=== PATIENT | male | born 1965 | race Caucasian/White ===

== ENCOUNTER → 2022-08-17 07:24 | Outpatient (BNVA) | payer OTHER, SELFPAY | PROVIDERS: PCP Internal Medicine; Visit Provider Student in an Organized Health Care Education/Training Program | DX: L95.8 Other vasculitis limited to the skin (principal) ==

== ENCOUNTER 2022-08-17 08:27 | Outpatient (REF) | payer OTHER, SELFPAY ==
[2022-08-17 10:26] LABS: MANUAL DIFF FLAG NO
[2022-08-17 10:35] LABS: Basophils Percent Auto 0.5 % (0-2); Eosinophils Absolute Auto 0.1 X10*3/uL (0.0-0.4); Eosinophils Percent Auto 1.5 % (0-4); Hematocrit 46.9 % (42.0-52.0); Hemoglobin 15.8 g/dl (14.0-18.0); Imm Gran Abs Auto 0.03 X10*3/uL (0.00-0.03); Imm Gran Pct Auto 0.5 % (0.0-0.4); Lymphocytes Absolute Auto 1.4 X10*3/uL (1.2-4.9); Lymphocytes Percent Auto 24.1 % (20-40); Mean Corpuscular HGB Conc 33.7 g/dl (31.0-36.0); Mean Corpuscular Hemoglobin 31.7 pg (27.0-33.0); Mean Platelet Volume 9.2 fL (9.4-12.4); Monocytes Absolute Auto 0.7 X10*3/uL (0.1-1.2); Monocytes Percent Auto 12.4 % (2-11); Neutrophils Absolute Auto 3.5 x10*3/uL (2.0-8.3); Platelet Count 252 X10*3/uL (160-400); Red Blood Count 4.99 X10*6/uL (4.60-5.80); Red Cell Distribution Width 12.7 % (11.0-16.0); White Blood Count 5.8 X10*3/uL (4.8-10.8)
[2022-08-17 11:19] LABS: Erythrocyte Sedimentation Rate 2 MM/HR (0-15)
[2022-08-17 13:59] LABS: Appearance Urine Clear; Color Urine Yellow; Glucose Urine UA Negative (Negative); Leukocyte Esterase Urine Negative (Negative); Nitrite Urine Negative (Negative); Specific Gravity - Urine 1.015 (1.005-1.025); Urine Blood Negative (Negative); Urine Ketones Negative (Negative); Urine Protein Negative (Neg-Trace)
[2022-08-17 14:02] LABS: Bacteria Urine None Seen (None Seen); Hyaline Casts Urine 0-2 /LPF (0-2); RBC Urine 0-2 /HPF (0-2); Squamous Epithelial Cell Urine 0-2 /HPF (0-2); WBC Urine 0-5 /HPF (0-5)
[2022-08-17 14:04] LABS: Alanine Aminotransferase 50 U/L (0-40); Albumin Level 4.4 g/dL (3.5-5.0); Alkaline Phosphatase 63 U/L (39-117); Anion Gap 12 (12-20); Aspartate Amino Transferase 26 U/L (5-37); Bilirubin Total 0.6 mg/dL (0.0-1.0); Blood Urea Nitrogen 22 mg/dL (9-16); C Reactive Protein 0.18 mg/dL (< or = 0.50); Calcium 9.6 mg/dL (8.4-10.2); Carbon Dioxide 27 mmol/L (22-29); Chloride 104 mmol/L (96-108); Estimated Glomerular Filt Rate > 60; Glucose Random 84 mg/dL (60-115); Potassium 4.2 mmol/L (3.3-5.1); Rheumatoid Factor < 13.0 IU/mL (<15.0); Sodium 139 mmol/L (135-145); Total Protein 7.1 g/dL (6.5-8.0)
[2022-08-17 15:06] LABS: Creatinine Urine 70.64 mg/dL; Total Protein Urine Random < 7 mg/dL (<12)
[2022-08-18 05:45] LABS: HBS Num1 0.82 mIU/mL (0-7.99); HBc Num1 0.08 S/CO (0.00-0.79); Hepatitis A Antibody IgM 0.22 Index (0-0.79); Hepatitis B Core Antibody Nonreactive (Nonreactive); ~HepC Num1 0.12 S/CO (0.00-0.79); ~Hepatitis A Antibody IgM Nonreactive (Nonreactive); ~Hepatitis B Surface Antibody NONREACTIVE (Nonreactive); ~Hepatitis C Antibody Nonreactive (Nonreactive)
[2022-08-18 06:13] LABS: HBsAGNum1 0.31 S/CO (0.00-0.99); Hepatitis B Surface Antigen Negative (Negative)
[2022-08-19 13:14] LABS: Prot Elec - Albumin 4.2 g/dL (3.8-4.8); Prot Elec - Alpha1 0.3 g/dL (0.2-0.3); Prot Elec - Alpha2 0.8 g/dL (0.5-0.9); Prot Elec - Beta 1 0.3 g/dL (0.4-0.6); Prot Elec - Beta 2 0.1 g/dL (0.2-0.5); Prot Elec - Total Protein 6.7 g/dL (6.1-8.1)
[2022-08-19 16:14] LABS: Anti Nuclear Antibody Screen NEGATIVE (NEGATIVE)
[2022-08-19 16:23] LABS: Cyclic Citrullinated Peptide <16 UNITS
[2022-08-19 22:58] LABS: Complement C3 74 mg/dL (82-185)
[2022-08-19 23:58] LABS: TS Negative Control Passed; TS Panel A 0; TS Panel B 0; TS Positive Control Passed; TSpotTB Negative (Negative)
[2022-08-21 04:44] LABS: Antibody to SS-A Antigen <1.0 NEG AI (<1.0 NEG); Antibody to SS-B Antigen <1.0 NEG AI (<1.0 NEG); Myeloperoxidase Antibody <1.0 AI; Proteinase 3 PR3 Antibodies <1.0 AI; SM/Ribonucleoprotein Ab <1.0 NEG AI (<1.0 NEG); Smith Protein <1.0 NEG AI (<1.0 NEG)
[2022-08-24 16:24] LABS: IgA <5 mg/dL (47-310); IgG 1141 mg/dL (600-1640); IgM 121 mg/dL (50-300)
[2022-08-25 15:09] LABS: DNAds, Crithidia Antibody Negative (Negative)
[2022-08-25 15:33] LABS: HLA B27 Negative (Negative)
[2022-08-25 17:03] LABS: C1Q Complement Component <3.6 mg/dL (5.0-8.6)
== END 2022-08-17 08:28 | disposition home or self-care (01) ==
LOC: HO.10HDL 08:27
PROVIDERS: Visit Provider Student in an Organized Health Care Education/Training Program
DX: L95.8 Other vasculitis limited to the skin (principal); D80.2 Selective deficiency of immunoglobulin A [IgA]; L40.50 Arthropathic psoriasis, unspecified; Z11.59 Encounter for screening for other viral diseases; Z11.7 Encounter for testing for latent tuberculosis infection
CPT/HCPCS: 80053; 81001; 82784; 84156; 84165; 85025; 85652; 86021; 86038; 86039; 86140; 86160; 86200; 86235; 86255; 86334; 86431; 86481; 86704; 86706; 86709; 86803; 86812; 87340

== ENCOUNTER → 2023-01-18 09:20 | Outpatient (BNVA) | payer OTHER, SELFPAY | PROVIDERS: PCP Internal Medicine; Visit Provider Student in an Organized Health Care Education/Training Program ==

== ENCOUNTER 2023-07-26 08:50 | Outpatient (REF) | payer OTHER, SELFPAY ==
--- NOTE | ~2023-07-26 | XR_ITS ---
EXAMINATION: XR FOOT, RIGHT CLINICAL INFORMATION: Pain without injury. COMPARISON: None available. TECHNIQUE: AP, lateral, and oblique views of the right foot. FINDINGS: The bones and soft tissues are unremarkable. There is minimal if any bunion formation of the first metatarsal head. Alignment is anatomic. Joint spaces are maintained. XR/XR foot LT min 3V IMPRESSION: Normal right foot. There is minimal bunion formation. EXAMINATION: XR FOOT, LEFT CLINICAL INFORMATION: Pain without injury; bunion of left foot. COMPARISON: None available. TECHNIQUE: AP, lateral, and oblique views of the left foot. FINDINGS: Bony alignment and mineralization are normal. No fracture, dislocation or left ankle joint effusion is seen. Boehler's angle is normal. There is no calcaneal spur. There is moderate osteoarthritic change of the first metatarsophalangeal joint. There is negligible bunion formation. No focal soft tissue swelling, gas or foreign body is seen. IMPRESSION: There is moderate osteoarthritic change of the left first metatarsophalangeal joint. Negligible bunion formation is noted.
--- NOTE | ~2023-07-26 | XR_ITS ---
EXAMINATION: XR FOOT, RIGHT CLINICAL INFORMATION: Pain without injury. COMPARISON: None available. TECHNIQUE: AP, lateral, and oblique views of the right foot. FINDINGS: The bones and soft tissues are unremarkable. There is minimal if any bunion formation of the first metatarsal head. Alignment is anatomic. Joint spaces are maintained. XR/XR foot RT min 3V IMPRESSION: Normal right foot. There is minimal bunion formation. EXAMINATION: XR FOOT, LEFT CLINICAL INFORMATION: Pain without injury; bunion of left foot. COMPARISON: None available. TECHNIQUE: AP, lateral, and oblique views of the left foot. FINDINGS: Bony alignment and mineralization are normal. No fracture, dislocation or left ankle joint effusion is seen. Boehler's angle is normal. There is no calcaneal spur. There is moderate osteoarthritic change of the first metatarsophalangeal joint. There is negligible bunion formation. No focal soft tissue swelling, gas or foreign body is seen. IMPRESSION: There is moderate osteoarthritic change of the left first metatarsophalangeal joint. Negligible bunion formation is noted.
== END 2023-07-26 08:51 | disposition home or self-care (01) ==
LOC: HO.XRAY 08:50
PROVIDERS: PCP Internal Medicine; Visit Provider Student in an Organized Health Care Education/Training Program
DX: M21.612 Bunion of left foot (principal); L95.8 Other vasculitis limited to the skin; M79.671 Pain in right foot
CPT/HCPCS: 73630

== ENCOUNTER 2023-07-26 08:50 | Outpatient (AMB) | payer OTHER, SELFPAY ==
--- NOTE | 2023-07-26 08:53 | A.OFFVIS_ITS ---
Intake Vital Signs 3 07/26/23 08:56 Height 5 ft 11 in Weight 154 lb 5.177 oz BMI 21.5 BP 128/82 Blood Pressure Location Rt brachial Position Sitting Pulse 87 Pulse Source Pulse Oximeter Pulse Oximetry (%) 97 Oxygen Delivery Method Room Air Intake Visit Reasons: Urticarial vasculitis Intake Note: Pt last seen 01/18/23, presents today for 6mo follow up. Still using triamcinolone and would like a refill. C/o pain in elbows and knees, progressively worse since last visit. Medical Review Coordinator Required: No Accompanied by: Self / Same As Patient Allergies Penicillins [PENICILLINS] Allergy (Unknown, Unverified 07/26/23 09:03) HIVES Medication List - Last Reconciled 07/26/23 by Jose Otero MD albuterol sulfate 90 mcg/actuation inhalation azelastine intranasal diphenhydramine HCl (Benadryl) 25 mg PO BEDTIME PRN epinephrine IM ibuprofen 200 mg PO Q6H PRN lorazepam 1 mg PO DAILY PRN prednisone Take 3 tabs by mouth once daily with breakfast for 2 weeks then 2 tabs daily for 2 weeks then remain on 1 tab daily pseudoephedrine HCl (Sudafed) 30 mg PO Q4-6H PRN sertraline 25 mg PO DAILY tamsulosin 0.4 mg PO DAILY PRN triamcinolone acetonide 0.1% 1 appl topical BID HPI HPI Comments 2 History of Present Illness0 Details 58-year-old male with urticarial vascul itis returns for follow-up. States that he continues to have itchy rashes on his back, right side, both forearms and both legs. The rashes are quite itchy. States that he applies triamcinolone cream on the most bothersome rashes which helped. He would like a refill. Uses Benadryl about once a week. States that he has been having pain in his right elbow. States that he is noticing enlargement of his left big toe associated with pain and stiffness especially with walking, denies any fevers or weight loss. Initial history: This is a 57-year-old male with a past medical history of IgA deficiency, urticarial vasculitis, hives, obstructive sleep apnea, AFib, psoriasis who presents for evaluation urticarial vasculitis. Patient states that he was diagnosed with urticarial vasculitis for many years now. Stated that he has itchy skin rashes on his trunk hands and extremities. Stated that does lesions never go way but he would have flare-ups of worsening skin rashes and worsening pruritus. A few weeks ago he had flare-up affecting the back of both knees. He was started on a prednisone taper by his PCP with significant improvement. He also mentions a significant allergic reaction to penicillin a few years back and he was on antihistamines for some time. Mentions he was diagnosed with psoriasis many years ago usually affected his scalp and was treated with shampoos. This has not been a problem recently. Patient states he has bilateral knee and shoulder pain worse with activity but does are chronic and unrelated to his rashes. He denies any fevers, chills, weight changes. Denies any blood or froth in urine. [facility] Medical History Dyslipidemia Psoriasis Restless leg Granuloma annulare Afib GERD (gastroesophageal reflux disease) DEYSI (obstructive sleep apnea) IgA deficiency BPH (benign prostatic hyperplasia) Surgical History History of tonsillectomy Hx of inguinal hernia repair History of radiofrequency ablation (RFA) procedure for cardiac arrhythmia Family History Father Dementia Alzheimer disease Maternal Grandfather Colon cancer Household Members: Family Housing: House Alcohol intake: current Alcohol intake frequency: 0-2 drinks per day Alcohol type: beer Patient Tobacco Use Status: Former Tobacco user Years Smoked: Quit 6 years ago e-Cigarette/Vaping Use: Never Used service: No Current occupational status: unemployed 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 Review of Systems Const Denies fever(s) and Denies weight loss Musc Reports deformity, Reports arthralgias and Reports stiffness Skin/Breast Reports pruritus, Reports lesions and Reports rash Physical Exam Vital Signs: Last Vital Signs Pulse 87 07/26/23 08:56 BP 128/82 07/26/23 08:56 Pulse Ox 97 07/26/23 08:56 Oxygen Delivery Method Room Air 07/26/23 08:56 BMI result Body Mass Index 21.5 Const General: cooperative, healthy appearing, comfortable and no acute distress Nutritional Appearance: average body habitus Orientation/consciousness: patient oriented x3 Limitations: no limitations HEENT Head: Yes normocephalic and Yes atraumatic Resp Effort & Inspection: normal respiratory effort and able to speak in complete sentences Skin Other: Rashes on right side of back and right flank Rashes on the flexor aspect of both forearms Rashes on legs Neuro General: patient oriented x3 Extrem Other: No active synovitis Positive resisted wrist extension test on the right, tenderness upon palpation of the common extensor origin on the right Enlargement of left 1st MTP as well as tenderness to palpation without erythema or warmth Results Reviewed Results Reviewed: SKIN, BACK-SHAVE BIOPSY: ?-NODULAR HISTIOCYTIC DERMATITIS, CONSISTENT WITH GRANULOMA ANNULARE ?-PAS AND GMS STAINS NEGATIVE FOR FUNGI ?( ?CONTROLS APPROPRIATE ?) ? RENAE BHATIA M.D., PATHOLOGIST (CASE ELECTRONICALLY SIGNED 10 20 2015) SKIN, BACK-PUNCH BIOPSY: ?-PERIVASCULAR AND INTERSTITIAL MIXED LYMPHOCYTIC/EOSINOPHILIC DERMATITIS AND EDEMA CONSISTENT WITH URTICARIAL VASCULITIS ?-PAS AND GMS STAINS NEGATIVE FOR FUNGI ?( ?CONTROLS APPROPRIATE ?) ? RENAE BHATIA M.D., PATHOLOGIST (CASE ELECTRONICALLY SIGNED 12 19 2017) Assessment & Plan Assessment & Plan (1) Urticarial vasculitis: Comment: low IgA, +C1q Ab, low C1q + skin biopsy Code(s): L95.8 - Other vasculitis limited to the skin Plan: This is a 58-year-old male with a past medical history of IgA deficiency, urticarial vasculitis who presents for follow-up. Continues to have diffuse rashes on forearms, back and legs. Will try a 6 week prednisone taper. If there is no improvement, will consider a DMARD such as azathioprine or dapsone. Will check TPMT and G6PD before next visit Topical triamcinolone refilled. Can use Benadryl nightly as needed for pruritus Labs before next visit in 6 weeks Plan I spent 26 minutes reviewing patient's chart, evaluating patient, ordering diagnostic workup, counseling patient and documenting in the chart Orders: Orders 2 Complete Blood Count Auto Diff 6 Weeks L95.8 - Other vasculitis limited to the skin C Reactive Protein 6 Weeks L95.8 - Other vasculitis limited to the skin Thiopurine Methyltransferase 6 Weeks Z51.81 - Encounter for therapeutic drug level monitoring, Z79.624 - long term care social worker (current) use of inhibitors of nucleotide synthesis XR foot RT min 3V Today M21.612 - Bunion of left foot XR foot LT min 3V Today M21.612 - Bunion of left foot Comprehensive Met. Panel 6 Weeks .8 - Other vasculitis limited to the skin Erythrocyte Sedimentation Rate 6 Weeks .8 - Other vasculitis limited to the skin [id number] Dehydrogen 6 Weeks Z79.899 - Other termite control technician (current) drug therapy Referrals 2 Podiatry Referral M21.612 - Bunion of left foot Medications: New 2 diphenhydramine HCl (Benadryl) 25 mg PO BEDTIME PRN 30 caps 2RF itching prednisone Take 3 tabs by mouth once daily with breakfast for 2 weeks then 2 tabs daily for 2 weeks then remain on 1 tab daily 84 tabs 1RF Refilled 2 triamcinolone acetonide 0.1% 1 appl topical BID 30 grams 2RF Coding Level of Care Code Est Pt Level 4 (20842) Diagnoses Urticarial vasculitis
[2023-07-26 08:56] VITALS: BP 128/82; PULSE 87; O2SAT 97; BMI 21.5
== END 2023-07-26 09:24 | disposition home or self-care (01) ==
PROVIDERS: PCP Internal Medicine; Visit Provider Student in an Organized Health Care Education/Training Program
DX: L95.8 Other vasculitis limited to the skin (principal)
CPT/HCPCS: 99214

== ENCOUNTER 2023-09-06 09:01 | Outpatient (AMB) | payer OTHER, SELFPAY ==
--- NOTE | 2023-09-06 09:05 | A.OFFVIS_ITS ---
Intake Vital Signs 3 09/06/23 09:09 Height 5 ft 11 in Weight 156 lb 11.979 oz BMI 21.9 BP 126/74 Blood Pressure Location Rt brachial Position Sitting Pulse 53 Pulse Source Pulse Oximeter Pulse Oximetry (%) 98 Oxygen Delivery Method Room Air Intake Visit Reasons: urticarial vasculitis Intake Note: Pt last seen 07/26/23 presents today for follow up and test results. States he did not do labs. Reports he never took prednisone because he is afraid it would interact with other meds. Teachers Assistant Required: No Accompanied by: Self / Same As Patient Allergies Penicillins [PENICILLINS] Allergy (Unknown, Unverified 09/06/23 09:10) HIVES Medication List - Last Reconciled 09/06/23 by Jose Otero MD albuterol sulfate 90 mcg/actuation inhalation azelastine intranasal CPAP (CPAP Machine/Device) As directed diphenhydramine HCl (Benadryl) 25 mg PO BEDTIME PRN epinephrine IM ibuprofen 200 mg PO Q6H PRN lorazepam 1 mg PO DAILY PRN prednisone Take 3 tabs by mouth once daily with breakfast for 2 weeks then 2 tabs daily for 2 weeks then remain on 1 tab daily pseudoephedrine HCl (Sudafed) 30 mg PO Q4-6H PRN sertraline 25 mg PO DAILY tamsulosin 0.4 mg PO DAILY PRN triamcinolone acetonide 0.1% 1 appl topical BID HPI HPI Comments 2 History of Present Illness0 Details 58-year-old male with urticarial vascul itis returns for follow-up. Last visit a prednisone taper was prescribed for an urticarial vasculitis flare, patient did not start as he was worried about side effects and interaction with other meds. He states that the rashes on his forearms and trunk are improving, but the rashes on his legs are getting worse, quite scratchy. He has been using the triamcinolone cream, puts Neosporin on open lesions. Initial history: This is a 57-year-old male with a past medical history of IgA deficiency, urticarial vasculitis, hives, obstructive sleep apnea, AFib, psoriasis who presents for evaluation urticarial vasculitis. Patient states that he was diagnosed with urticarial vasculitis for many years now. Stated that he has itchy skin rashes on his trunk hands and extremities. Stated that does lesions never go way but he would have flare-ups of worsening skin rashes and worsening pruritus. A few weeks ago he had flare-up affecting the back of both knees. He was started on a prednisone taper by his PCP with significant improvement. He also mentions a significant allergic reaction to penicillin a few years back and he was on antihistamines for some time. Mentions he was diagnosed with psoriasis many years ago usually affected his scalp and was treated with shampoos. This has not been a problem recently. Patient states he has bilateral knee and shoulder pain worse with activity but does are chronic and unrelated to his rashes. He denies any fevers, chills, weight changes. Denies any blood or froth in urine. [facility] Medical History Dyslipidemia Psoriasis Restless leg Granuloma annulare Afib GERD (gastroesophageal reflux disease) DEYSI (obstructive sleep apnea) IgA deficiency BPH (benign prostatic hyperplasia) Surgical History History of tonsillectomy Hx of inguinal hernia repair History of radiofrequency ablation (RFA) procedure for cardiac arrhythmia Family History Father Dementia Alzheimer disease Maternal Grandfather Colon cancer Social History Household Members: Family Housing: House Alcohol intake: current Alcohol intake frequency: 0-2 drinks per day Alcohol type: beer Patient Tobacco Use Status: Former Tobacco user Years Smoked: Quit 6 years ago e-Cigarette/Vaping Use: Never Used service: No Current occupational status: unemployed 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 Review of Systems Const Denies fever(s) and Denies weight loss Musc Reports stiffness Skin/Breast Reports pruritus, Reports lesions and Reports rash Physical Exam Vital Signs: Last Vital Signs Pulse 53 09/06/23 09:09 BP 126/74 09/06/23 09:09 Pulse Ox 98 09/06/23 09:09 Oxygen Delivery Method Room Air 09/06/23 09:09 BMI result Body Mass Index 21.9 Const General: cooperative, healthy appearing, comfortable and no acute distress Nutritional Appearance: average body habitus Orientation/consciousness: patient oriented x3 Limitations: no limitations HEENT Head: Yes normocephalic and Yes atraumatic Resp Effort & Inspection: normal respiratory effort and able to speak in complete sentences Skin Other: Rashes on forearms and trunk are less active, more hyperpigmented than last visit Rashes on legs remain quite active. Neuro General: patient oriented x3 Extrem Other: No active synovitis Results Reviewed Results Reviewed: SKIN, BACK-SHAVE BIOPSY: ?-NODULAR HISTIOCYTIC DERMATITIS, CONSISTENT WITH GRANULOMA ANNULARE ?-PAS AND GMS STAINS NEGATIVE FOR FUNGI ?( ?CONTROLS APPROPRIATE ?) ? RENAE BHATIA M.D., PATHOLOGIST (CASE ELECTRONICALLY SIGNED 10 20 2015) SKIN, BACK-PUNCH BIOPSY: ?-PERIVASCULAR AND INTERSTITIAL MIXED LYMPHOCYTIC/EOSINOPHILIC DERMATITIS AND EDEMA CONSISTENT WITH URTICARIAL VASCULITIS ?-PAS AND GMS STAINS NEGATIVE FOR FUNGI ?( ?CONTROLS APPROPRIATE ?) ? RENAE BHATIA M.D., PATHOLOGIST (CASE ELECTRONICALLY SIGNED 12 19 2017) Assessment & Plan Assessment & Plan (1) Urticarial vasculitis: Comment: low IgA, +C1q Ab, low C1q + skin biopsy Code(s): L95.8 - Other vasculitis limited to the skin Plan: This is a 58-year-old male with a past medical history of IgA deficiency, urticarial vasculitis who presents for follow-up. Continues to have diffuse rashes on forearms, back and legs. Last visit prednisone taper was prescribed, patient did not start it for fear of side effects. We discussed the risks and benefits of steroids. Advised patient to call the clinic if he develops any side effects such as mood changes. He is taking lorazepam 1 mg nightly If there is no improvement, will consider a DMARD such as azathioprine or dapsone. Will Need to check TPMT and G6PD Continue with topical triamcinolone cream Can use Benadryl nightly as needed for pruritus Follow-up in 6 weeks Plan I spent 16 minutes reviewing patient's chart, evaluating patient, counseling patient and documenting in the chart Coding Level of Care Code Est Pt Level 3 (44717) Diagnoses Urticarial vasculitis L95.8
[2023-09-06 09:09] VITALS: BP 126/74; PULSE 53; O2SAT 98; BMI 21.9
== END 2023-09-06 09:34 | disposition home or self-care (01) ==
PROVIDERS: PCP Internal Medicine; Visit Provider Student in an Organized Health Care Education/Training Program
DX: L95.8 Other vasculitis limited to the skin (principal)
CPT/HCPCS: 99213

== ENCOUNTER → 2023-09-06 09:01 | Outpatient (BNVA) | payer OTHER, SELFPAY | PROVIDERS: PCP Internal Medicine; Visit Provider Student in an Organized Health Care Education/Training Program ==

== ENCOUNTER 2023-11-01 09:09 | Outpatient (REF) | payer OTHER, SELFPAY ==
[2023-11-01 11:19] LABS: MANUAL DIFF FLAG NO
[2023-11-01 11:22] LABS: Basophils Percent Auto 0.6 % (0-2); Eosinophils Percent Auto 0.4 % (0-4); Hemoglobin 15.2 g/dl (14.0-18.0); Imm Gran Abs Auto 0.02 X10*3/uL (0.00-0.03); Imm Gran Pct Auto 0.4 % (0.0-0.4); Lymphocytes Absolute Auto 1.1 X10*3/uL (1.2-4.9); Lymphocytes Percent Auto 22.1 % (20-40); Mean Corpuscular HGB Conc 34.5 g/dl (31.0-36.0); Mean Corpuscular Hemoglobin 31.6 pg (27.0-33.0); Mean Corpuscular Volume 91.5 fL (80.0-98.0); Mean Platelet Volume 9.4 fL (9.4-12.4); Monocytes Absolute Auto 0.6 X10*3/uL (0.1-1.2); Monocytes Percent Auto 11.8 % (2-11); Neutrophils Absolute Auto 3.3 x10*3/uL (2.0-8.3); Neutrophils Percent Auto 64.7 % (45-73); Platelet Count 256 X10*3/uL (160-400); Red Blood Count 4.81 X10*6/uL (4.60-5.80); Red Cell Distribution Width 12.8 % (11.0-16.0); White Blood Count 5.2 X10*3/uL (4.8-10.8)
[2023-11-01 12:02] LABS: Erythrocyte Sedimentation Rate 2 MM/HR (0-15)
[2023-11-01 12:21] LABS: Alanine Aminotransferase 68 U/L (0-40); Albumin Level 4.2 g/dL (3.5-5.0); Alkaline Phosphatase 73 U/L (39-117); Anion Gap 9 (12-20); Aspartate Amino Transferase 41 U/L (5-37); Bilirubin Total 0.4 mg/dL (0.0-1.0); Blood Urea Nitrogen 19 mg/dL (9-16); C Reactive Protein 0.38 mg/dL (< or = 0.50); Calcium 10.2 mg/dL (8.4-10.2); Carbon Dioxide 25 mmol/L (22-29); Chloride 106 mmol/L (96-108); Estimated Glomerular Filt Rate > 60; Glucose Random 96 mg/dL (60-115); Sodium 136 mmol/L (135-145); Total Protein 7.3 g/dL (6.5-8.0)
[2023-11-06 22:38] LABS: Glucose-6-Phosphate Dehydrogen 14.8 U/g Hgb (7.0-20.5)
[2023-11-23 03:19] LABS: TPMT Activity 15
== END 2023-11-01 09:10 | disposition home or self-care (01) ==
LOC: HO.10HDL 09:09
PROVIDERS: Visit Provider Student in an Organized Health Care Education/Training Program
DX: L95.8 Other vasculitis limited to the skin (principal); Z79.624 Long term (current) use of inhibitors of nucleotide synthesis; Z79.899 Other long term (current) drug therapy
CPT/HCPCS: 36415; 80053; 82955; 84433; 85025; 85652; 86140

== ENCOUNTER 2023-11-03 08:37 | Outpatient (AMB) | payer OTHER, SELFPAY ==
[2023-11-03 08:39] VITALS: BP 134/80; PULSE 99; O2SAT 96; BMI 21.7
--- NOTE | 2023-11-03 08:39 | A.OFFVIS_ITS ---
Intake Vital Signs 11/03/23 08:39 Height 5 ft 11 in Weight 155 lb 13.869 oz BMI 21.7 BP 134/80 Blood Pressure Location Rt brachial Position Sitting Pulse 99 Pulse Source Pulse Oximeter Pulse Oximetry (%) 96 Oxygen Delivery Method Room Air Intake Visit Reasons: urticarial vasculitis Intake Note: Patient last seen 09/06/23 presents today for follow up and test results. Not on prednisone, states he feels as if he doesnt need it. Not helping with itch. Reports joint locking bl hands and severe cramping Display Screen Fabricator Required: No Accompanied by: Self / Same As Patient Allergies Penicillins [PENICILLINS] Allergy (Unknown, Unverified 11/03/23 08:41) HIVES Medication List - Last Reconciled 11/03/23 by Jose Otero MD albuterol sulfate 90 mcg/actuation inhalation azelastine intranasal CPAP (CPAP Machine/Device) As directed diphenhydramine HCl (Benadryl) 25 mg PO BEDTIME PRN epinephrine IM ibuprofen 200 mg PO Q6H PRN lorazepam 1 mg PO DAILY PRN prednisone Take 3 tabs by mouth once daily with breakfast for 2 weeks then 2 tabs daily for 2 weeks then remain on 1 tab daily pseudoephedrine HCl (Sudafed) 30 mg PO Q4-6H PRN sertraline 25 mg PO DAILY tamsulosin 0.4 mg PO DAILY PRN triamcinolone acetonide 0.1% 1 appl topical BID HPI HPI Comments History of Present Illness Details 58-year-old male with urticarial vascul itis returns for follow-up. Last visit a prednisone taper was prescribed for an urticarial vasculitis flare, he took prednisone for only 1 week. He did not feel that it helped much and was worried about long-term side effects. He states that the itchy lesions have been a little better, he has been using Benadryl cream. Recently has been noticing that his hands get stiff while working. Minimally painful. No swelling. Right a little more than left. States that he drinks a 6 pack on the weekend Initial history: This is a 57-year-old male with a past medical history of IgA deficiency, urticarial vasculitis, hives, obstructive sleep apnea, AFib, p soriasis who presents for evaluation urticarial vasculitis. Patient states that he was diagnosed with urticarial vasculitis for many years now. Stated that he has itchy skin rashes on his trunk hands and extremities. Stated that does lesions never go way but he would have flare-ups of worsening skin rashes and worsening pruritus. A few weeks ago he had flare-up affecting the back of both knees. He was started on a prednisone taper by his PCP with significant improvement. He also mentions a significant allergic reaction to penicillin a few years back and he was on antihistamines for some time. Mentions he was diagnosed with psoriasis many years ago usually affected his scalp and was treated with shampoos. This has not been a problem recently. Patient states he has bilateral knee and shoulder pain worse with activity but does are chronic and unrelated to his rashes. He denies any fevers, chills, weight changes. Denies any blood or froth in urine. [facility] Medical History Dyslipidemia Psoriasis Restless leg Granuloma annulare Afib GERD (gastroesophageal reflux disease) DEYSI (obstructive sleep apnea) IgA deficiency BPH (benign prostatic hyperplasia) Surgical History History of tonsillectomy Hx of inguinal hernia repair History of radiofrequency ablation (RFA) procedure for cardiac arrhythmia Family History Father Dementia Alzheimer disease Maternal Grandfather Colon cancer Social History Household Members: Family Housing: House Alcohol intake: current Alcohol intake frequency: 0-2 drinks per day Alcohol type: beer Patient Tobacco Use Status: Former Tobacco user Years Smoked: Quit 6 years ago e-Cigarette/Vaping Use: Never Used service: No Current occupational status: unemployed 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 Review of Systems Const Denies fever(s) and Denies weight loss Musc Reports stiffness Skin/Breast Reports pruritus and Reports rash Physical Exam Vital Signs: Last Vital Signs Pulse 99 11/03/23 08:39 BP 134/80 11/03/23 08:39 Pulse Ox 96 11/03/23 08:39 Oxygen Delivery Method Room Air 11/03/23 08:39 BMI result Body Mass Index 21.7 Const General: cooperative, healthy appearing, comfortable and no acute distress Nutritional Appearance: average body habitus Orientation/consciousness: patient oriented x3 Limitations: no limitations HEENT Head: Yes normocephalic and Yes atraumatic Resp Effort & Inspection: normal respiratory effort and able to speak in complete sentences Skin Other: No active rashes on the back Minimal excoriations on right elbow Very subtle excoriation on posterior aspect of right knee Rashes on legs significantly improved Neuro General: patient oriented x3 Extrem Other: No active synovitis Osteoarthritic changes of both hands Subtle triggering of his flexor tendons bilaterally minimally painful Tenderness at the common extensor origin at the lateral epicondyle both elbows Positive resisted wrist extension test on the right Results Reviewed Results Reviewed: SKIN, BACK-SHAVE BIOPSY: ?-NODULAR HISTIOCYTIC DERMATITIS, CONSISTENT WITH GRANULOMA ANNULARE ?-PAS AND GMS STAINS NEGATIVE FOR FUNGI ?( ?CONTROLS APPROPRIATE ?) ? RENAE BHATIA M.D., PATHOLOGIST (CASE ELECTRONICALLY SIGNED 10 20 2015) SKIN, BACK-PUNCH BIOPSY: ?-PERIVASCULAR AND INTERSTITIAL MIXED LYMPHOCYTIC/EOSINOPHILIC DERMATITIS AND EDEMA CONSISTENT WITH URTICARIAL VASCULITIS ?-PAS AND GMS STAINS NEGATIVE FOR FUNGI ?( ?CONTROLS APPROPRIATE ?) ? RENAE BHATIA M.D., PATHOLOGIST (CASE ELECTRONICALLY SIGNED 12 19 2017) Assessment & Plan Assessment & Plan (1) Urticarial vasculitis: Comment: low IgA, +C1q Ab, low C1q, mildly low C3 + skin biopsy Code(s): L95.8 - Other vasculitis limited to the skin Plan: This is a 58-year-old male with a past medical history of IgA deficiency, urti carial vasculitis who presents for follow-up. Rashes have improved. Last visit prednisone taper was prescribed, patient discontinued it after 1 week, did not feel was helpful. Upon evaluation today his rashes have significantly improved. Continue with topical triamcinolone cream Can use Benadryl nightly as needed for pruritus Follow-up in 6 months (2) Osteoarthritis of hands, bilateral: Code(s): M19.041 - Primary osteoarthritis, right hand; M19.042 - Primary osteoarthritis, left hand Qualifiers: Osteoarthritis type: primary Qualified Code(s): M19.041 - Primary osteoarthritis, right hand; M19.042 - Primary osteoarthritis, left hand Plan: No signs of inflammatory arthritis. Patient reassured Also has signs of mild flexor tendonitis of both hands as well as bilateral tennis elbow. Discussed with patient. Symptoms are mild, no need for any specific intervention at this point (3) Transaminitis: Code(s): R74.01 - Elevation of levels of liver transaminase levels Plan: Drinks a six-pack beer on the weekends. Advised patient to cut down. Follow-up with PCP Plan I spent 30 minutes reviewing patient's chart, evaluating patient, counseling patient and documenting in the chart Coding Level of Care Code Est Pt Level 4 (23334) Diagnoses Urticarial vasculitis L95.8 Primary osteoarthritis of both hands M19.041; M19.042 Osteoarthritis type: primary Transaminitis R74.01
== END 2023-11-03 09:05 | disposition home or self-care (01) ==
PROVIDERS: PCP Internal Medicine; Visit Provider Student in an Organized Health Care Education/Training Program
DX: L95.8 Other vasculitis limited to the skin (principal); M19.041 Primary osteoarthritis, right hand; M19.042 Primary osteoarthritis, left hand; R74.01 Elevation of levels of liver transaminase levels
CPT/HCPCS: 99214

== ENCOUNTER → 2023-11-03 08:37 | Outpatient (BNVA) | payer OTHER, SELFPAY | PROVIDERS: PCP Internal Medicine; Visit Provider Student in an Organized Health Care Education/Training Program ==

== ENCOUNTER 2024-03-23 15:18 | Outpatient (AMB) | payer OTHER, SELFPAY ==
[2024-03-23 15:22] VITALS: BP 118/76; PULSE 83; O2SAT 98; BMI 21.4
--- NOTE | 2024-03-23 15:22 | A.OFFVIS_ITS ---
Vital Signs 3 03/23/24 15:22 Height 5 ft 11 in Weight 153 lb 4 oz BMI 21.4 BP 118/76 Blood Pressure Location Rt brachial Position Sitting Pulse 83 Pulse Source Pulse Oximeter Pulse Oximetry (%) 98 Oxygen Delivery Method Room Air Intake Visit Reasons: COPD Allergies Penicillins [PENICILLINS] Allergy (Unknown, Unverified 03/23/24 15:25) HIVES doxycycline Allergy (Verified 03/25/24 11:19) Hives oseltamivir [From Tamiflu] Allergy (Verified 03/25/24 11:19) Hives HPI HPI COPD: Details: Yinka is a pleasant 59 year old male, former smoker with 30 pack year history, quit 9 years ago, with underlying DEYSI on CPAP ([facility]), allergic rhinitis, atrial fibrillation s/p ablation (6 years ago), IgA deficiency, GERD and anxiety. He was referred by machine adjuster helper, Dr. Kan, for pulmonary evaluation after PFT revealed of mild COPD. He reports more noticeable dyspnea on moderate exertion over the last year using albuterol PRN with good effect. Over the last few months patient has been using albuterol on a daily basis for worsening dyspnea, intermittent dry cough and wheezing. He was given a sample of Trelegy from machine adjuster helper but has not trialed yet. Recent PFT, no report available, prior PFT 2021. He was previously a part of a lung screening program but has been lost to follow up. He believes last LDCT was 2 years ago through [facility]. He reports diagnosis of childhood asthma, never requiring intubation. He reports numerous environmental and drug allergies. He denies any pertinent family history. 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 He has been diagnosed in the past with urticarial vasculitis, per referral has seen rheumatology previously trialed Xolair, however patient discontinued and symptoms have been controlled with topicals. Denies any hemoptysis. FOR[facility]LY [facility] Medical History Dyslipidemia Psoriasis Restless leg Granuloma annulare Afib GERD (gastroesophageal reflux disease) DEYSI (obstructive sleep apnea) IgA deficiency BPH (benign prostatic hyperplasia) Surgical History History of tonsillectomy Hx of inguinal hernia repair History of radiofrequency ablation (RFA) procedure for cardiac arrhythmia Family History Father Dementia Alzheimer disease Maternal Grandfather Colon cancer Social History Household Members: Family Housing: House Alcohol intake: current Alcohol intake frequency: 0-2 drinks per day Alcohol type: beer Patient Tobacco Use Status: Former Tobacco user Years Smoked: Quit 6 years ago e-Cigarette/Vaping Use: Never Used service: No Current occupational status: unemployed 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 Review of Systems Const Denies chills, Denies excessive sweating, Denies fever(s), Denies headache(s) and Denies night sweats Eyes Denies dry eyes, Denies irritation and Denies itchy eyes ENT Reports Normal hearing present, Denies headache(s), Denies nasal congestion, Denies nasal discharge, Denies post nasal drip and Denies sore throat Card Denies chest pain, Denies chest pain at rest, Denies chest pain with activity, Denies claudication, Denies leg edema, Denies orthopnea and Denies paroxysmal nocturnal dyspnea Resp Denies chest congestion, Denies excessive phlegm production, Denies pain on inspiration, Denies pain with cough and Denies stridor Musc Denies myalgias Neuro Reports Normal hearing present and Denies headache(s) Endo Denies excessive sweating Amando/Lymph Denies lymphadenopathy Aller/Immun Denies itchy eyes and Denies seasonal rhinorrhea Physical Exam Vital Signs: Last Vital Signs Pulse 83 03/23/24 15:22 BP 118/76 03/23/24 15:22 Pulse Ox 98 03/23/24 15:22 Oxygen Delivery Method Room Air 03/23/24 15:22 BMI result Body Mass Index 21.4 Const General: cooperative, healthy appearing, comfortable, no acute distress, well developed and alert Orientation/consciousness: patient oriented x3 Limitations: no limitations HEENT Head: Yes normal to inspection, Yes normocephalic and Yes atraumatic Ears: hearing grossly normal bilaterally and external ears normal Eyes General: appearance normal, both eyes and all related structures Eyelids: Yes eyelids normal Sclerae: sclerae normal EOM: EOMs intact bilaterally Neck Neck: Yes normal visual inspection and Yes no lymphadenopathy Lymphatic: no lymphadenopathy noted Chest Chest palpation & inspection: normal inspection of the chest Resp Effort & Inspection: normal respiratory effort, able to speak in complete sentences, no audible wheezes, no cough, no stridor, not tachypneic, no tripod positioning and no use of accessory muscles Auscultation: clear to auscultation bilaterally Cardio Jugular venous distension: no JVD Rate: regular rate Rhythm: regular rhythm Skin Other: warm, dry General skin exam: no rashes or lesions noted Neuro General: patient oriented x3 Cranial nerves: Yes Normal hearing present Cognition (Neuro): normal cognition Gait exam (Neuro): Normal gait present Extrem General: Yes normal to inspection, Yes capillary refill normal, Yes no clubbing, cyanosis or edema and Yes no pedal edema Psych Appearance: grossly normal and well kempt Speech and movement: Normal speech and movement present and Clear speech present Affect: normal affect Attitude: cooperative Thought process: Normal thought process present Thought content: Normal thought content present Insight: Good insight present (Psych) Judgement: Good judgement present (Psych) Results Reviewed Results Reviewed: PFT 2021 Assessment & Plan Assessment & Plan (1) COPD (chronic obstructive pulmonary disease): Code(s): J44.9 - Chronic obstructive pulmonary disease, unspecified Category: Medical (2) Personal history of tobacco use: Code(s): Z87.891 - Personal history of nicotine dependence Category: Social Hx Plan Yinka presents for pulmonary evaluation after recent diagnosis of mild COPD. He was given a sample of Trelegy 100 mcg from machine adjuster helper but has yet to use. Encouraged patient to trial, as he has been more symptomatic, using albuterol on a daily basis. Will obtain recent PFT report as well as prior chest CT. Patient has been lost to follow up on LDCT, will send for chest CT given patient with significant smoking history and quit 9 years ago. All questions were answered and patient is in agreement of plan. Will follow up to review chest CT results and response to Trelegy or sooner if needed. Orders: Orders 2 CT chest wo IV con Today Z87.891 - Personal history of nicotine dependence Coding Level of Care Code New Pt Level 4 (03694) Diagnoses COPD (chronic obstructive pulmonary disease) J44.9 Personal history of tobacco use Z87.891
== END 2024-03-23 16:21 | disposition home or self-care (01) ==
PROVIDERS: PCP Internal Medicine; Referring Provider Allergy & Immunology; Visit Provider Nurse Practitioner Family
DX: J44.9 Chronic obstructive pulmonary disease, unspecified (principal); Z87.891 Personal history of nicotine dependence
CPT/HCPCS: 99204

== ENCOUNTER → 2024-03-23 15:18 | Outpatient (BNVA) | payer OTHER, SELFPAY | PROVIDERS: PCP Internal Medicine; Referring Provider Allergy & Immunology; Visit Provider Nurse Practitioner Family ==

== ENCOUNTER → 2024-04-06 11:26 | Outpatient (BNVA) | payer OTHER, SELFPAY | PROVIDERS: PCP Internal Medicine; Visit Provider Registered Nurse | DX: S50.02XA Contusion of left elbow, initial encounter (principal); W22.09XA Striking against other stationary object, initial encounter | CPT/HCPCS: 73080; 99203 ==

== ENCOUNTER 2024-04-23 07:00 | Outpatient (REF) | payer OTHER, SELFPAY ==
--- NOTE | ~2024-04-23 | CT_ITS ---
EXAMINATION: CT CHEST WITHOUT CONTRAST CLINICAL INFORMATION: Nicotine dependence. COMPARISON: None available. TECHNIQUE: Multidetector volumetric CT imaging of the chest was done. Axial MIP volume rendering provided. Sagittal and coronal reformatted images were obtained. This CT examination was performed using dose optimization techniques as appropriate, variously including the following: *Automated exposure control *Adjustment of mA and/or kV according to patient size (this includes techniques or standardized protocols for targeted exams where dose is matched to indication/reason for exam; i.e. 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 LUNGS: There is biapical pleural and parenchymal scarring. There are centrilobular and paraseptal emphysematous changes, with a bilateral upper lobe predominance. There are biapical densities, possibly calcifications and/or surgical material. Laterally within the right upper lobe (7:111), a coarse benign, calcified granuloma is seen. Within the lateral basal segment of the right lower lobe (7:368), a 2 mm noncalcified nodule is seen. There are further benign, calcified granulomas at the right base. At the posterior left apex (7:51), a 3 mm noncalcified nodule is seen. Abutting the upper left major fissure (7:135), a 3 mm benign, pleural-based lymph node is seen. Within the anterior segment of the right upper lobe (7:275), a 2 mm noncalcified nodule is seen. Within the superior segment of the left lower lobe (7:218), a 2 mm noncalcified nodule is seen. Within the lateral basal segment of the left lower lobe (7:370 and 450), there are 3 mm and 5 mm noncalcified nodules. No mass, infiltrate or groundglass opacity is seen. There are bibasilar scattered foci of minor scar/subsegmental atelectasis, without associated focal airway obstruction. There is no generalized small airway thickening. The central airways appear patent. MEDIASTINUM: The thyroid is unremarkable. No sizable mediastinal or hilar lymphadenopathy is seen. There is no thoracic aortic aneurysm. CORONARY ARTERY CALCIFICATION: Mild. PLEURA: There is no pleural effusion. No pleural mass or thickening. AXILLA: No lymphadenopathy. UPPER ABDOMEN: There are multiple low-attenuation bilateral renal probable cysts, some too small for full characterization with CT. The included portions of the adrenal glands are unremarkable. OSSEOUS STRUCTURES: There is multi-level thoracolumbar spondylosis. No acute or aggressive osseous finding is noted. CT/CT chest wo IV con IMPRESSION: 1. There are bilateral pulmonary nodules, as detailed. The largest noncalcified nodule is situated at the lateral left base, measuring 5 mm. According to the UPDATED 2017 Fleischner Society recommendations, the advised follow-up imaging for solid nodules < 6 mm is: LOW RISK PATIENT: No routine follow-up. HIGH RISK PATIENT: Optional CT at 12 months. 2. There are centrilobular and paraseptal emphysematous changes, with a bilateral upper lobe predominance. 3. No mass, infiltrate or groundglass opacity is seen. 4. There are bibasilar scattered foci of mild scar/subsegmental atelectasis, without associated focal airway obstruction. 5. No thoracic lymphadenopathy or pleural effusion is seen. 6. There is multi-level thoracolumbar spondylosis. No aggressive osseous lesion is seen. Fleischner guidelines were followed. Electronically signed by: Xavier Beckwith MD 05/23/2024 09:27 AM EDT
== END 2024-04-23 07:01 | disposition home or self-care (01) ==
LOC: HO.CT 07:00
PROVIDERS: PCP Internal Medicine; Visit Provider Nurse Practitioner Family
DX: Z87.891 Personal history of nicotine dependence (principal)
CPT/HCPCS: 71250

== ENCOUNTER 2024-04-27 08:57 | Outpatient (AMB) | payer OTHER, SELFPAY ==
[2024-04-27 09:17] VITALS: BP 136/84; PULSE 76; RESP 13; O2SAT 99; BMI 20.5
--- NOTE | 2024-04-27 09:17 | A.OFFPC_ITS ---
Vital Signs 04/27/24 09:17 Height 5 ft 11 in Weight 147 lb BMI 20.5 BP 136/84 Blood Pressure Location Lt brachial Position Sitting Respiration 13 Pulse 76 Pulse Source Pulse Oximeter Pulse Oximetry (%) 99 Oxygen Delivery Method Room Air Intake Visit Reasons: Establish Care not a transfer Intake Note: Patient is here to re-establish care with Dr. Bal and share he has no concerns at this time. Patient reports he has anxiety meds and he would like to continue with them. 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 Accompanied by: Self / Same As Patient Allergies Penicillins [PENICILLINS] Allergy (Unknown, Verified 04/27/24 09:23) HIVES doxycycline Allergy (Verified 04/27/24 09:23) Hives oseltamivir [From Tamiflu] Allergy (Verified 04/27/24 09:23) Hives Tobacco use date assessed: 04/27/24 Dental Screening Dental Screen Date: 04/27/24 Did you have a dental visit in the last 12 months?: No Did you have a dental problem in the last 6 months where you did not have access to dental care?: No Was dental information given to patient?: Patient has dentist HPI HPI Comments History of Present Illness Details 59-year-old male with a past medical his tory of atrial fibrillation s/p ablation, hyperlipidemia, urticarial vasculitis, IgA deficiency, psoriasis, DEYSI, GERD, presenting for follow up Urticaria vasculitis-IgA, C1q antibody, allergies. Follows with allergy and immunology, Dr Kan, rheumatology Dr Otero. He has intermittent joint pain, rash. CV: s/p ablation 2014. Prior to that on flecainide and eliquis. Denies chest pain, dizziness, vision changes Pulmonary: Allergies, COPD on PFT, DEYSI on cpap. Seeing pulmonary. MSK: Polyarthralgia. Left neck, shoulder and elbow pain. Diffuse aches pain Anxiety: On sertraline 25mg daily. Takes lorazepam at night BPH On tamsulosin. Follows with urology. Seen 04/2021. Preventive: Colonoscopy 07/02/2021-recommend repeat in 5 years for sessile polyp ROS CONSTITUTIONAL: Denies weight loss, fever and chills. HEENT: Denies changes in vision and hearing. RESPIRATORY: Denies SOB and cough. CV: Denies palpitations and CP GI: Denies abdominal pain, nausea, vomiting and diarrhea. : Denies dysuria and urinary frequency. MSK: Denies new myalgia and joint pain. SKIN: Denies rash and pruritus. NEUROLOGICAL: Denies headache PSYCHIATRIC: Denies recent changes in mood. PHYSICAL EXAM: GENERAL: Alert and oriented x 3. NAD EYES: EOMI. Anicteric. HENT: Moist mucous membranes. No scleral icterus. No cervical lymphadenopathy. LUNGS: Clear to auscultation bilaterally. CARDIOVASCULAR: Regular rate and rhythm. No murmur. No JVD. ABDOMEN: Soft, non-tender +bs EXTREMITIES: No edema. Non-tender. SKIN: No rashes or lesions. Warm. NEUROLOGIC: No focal neurological deficits. CN II-XII grossly intact PSYCHIATRIC: Cooperative. Appropriate mood and affect [facility] Medical History (Updated 05/01/24 @ 14:03 by Adali Bal MD) IgA deficiency Anxiety Arthritis Dyslipidemia Psoriasis Restless leg Granuloma annulare Afib GERD (gastroesophageal reflux disease) DEYSI (obstructive sleep apnea) BPH (benign prostatic hyperplasia) Surgical History History of tonsillectomy Hx of inguinal hernia repair History of radiofrequency ablation (RFA) procedure for cardiac arrhythmia Family History Father Dementia Alzheimer disease Maternal Grandfather Colon cancer Social History Household Members: Family and Children Household Members Other:: Grandchildren Both parents involved: No Caregiver staying overnight: No Housing: House Are you a primary animal care taker to a significant other at home: No Do you presently have visiting nurse or other home services: No 75 years or older and lives alone: No Alcohol intake: current Alcohol intake frequency: 0-2 drinks per day Alcohol type: beer Patient Tobacco Use Status: Former Tobacco user Years Smoked: Quit 7 years ago e-Cigarette/Vaping Use: Never Used service: No Current occupational status: employed 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 Current occupational exposures/hazards: No Cognitive needs: No Hearing needs: No Vision needs: Yes (experiencing changes, needs referral to ophthalmology) Questionnaire PHQ-9 Over the last 2 weeks, how often have you been bothered by any of the following problems? 1. Little interest or pleasure in doing things: several days 2. Feeling down, depressed, or hopeless: several days 3. Trouble falling or staying asleep, or sleeping too much: more than half the days 4. Feeling tired or having little energy: not at all 5. Poor appetite or overeating: not at all 6. Feeling bad about yourself - or that you are a failure or have let yourself or your family down: not at all 7. Trouble concentrating on things, such as reading the newspaper or watching television: not at all 8. Moving or speaking so slowly that other people could have noticed. Or the opposite - being so fidgety or restless that you have been moving around a lot more than usual: not at all 9. Thoughts that you would be better off or of hurting yourself in some way: not at all Total score: 4 Depression Screening Interpretation: Negative (neg) Depression Screening Done: Yes 26597 - PHQ-9 Billing: Yes Source: Developed by Drs. Bill Howe, Nallely Hercules, Noman Calles and colleagues, with an educational kelly from [employer]. Thrive Questionnaire Date Thrive assessed: 04/27/24 I am a: Patient What is your living situation today?: I have a steady place to live Within the past 12 months, did the food you bought not last and you didn't have the money to get more?: Never true Within the past 12 months, did you worry whether your food would run out before you got money to buy more?: Never true Do you have trouble paying for medicines?: No Do you have trouble getting transportation to medical appointments?: No Do you have trouble paying your heating and electricity bill?: No Do you have trouble taking care of your child, family member or friend?: No Do you have trouble with day-to-day activities such as bathing, preparing meals, shopping, managing finances, etc.?: No Are you interested in more education?: No Please select the resources that you would like help with: None Currently or been in a relationship where the following occur: No concerns reported THRIVE Score: 0 AUDIT C Alcohol Use Questionnaire (AUDIT-C) 1. How often do you have a drink containing alcohol?: 4 or more times a week 2. How many drinks containing alcohol do you have on a typical day when you are drinking?: 1 or 2 3. How often do you have six or more drinks on one occasion?: Never Total Score: 4 RINA-7 AMB Questionnaire RINA-7 Date RINA - 7 assessed: 04/27/24 Feeling nervous, anxious, or on edge: 2 = More than half the days Not being able to stop or control worryin = Several days Worrying too much about different things: 1 = Several days Trouble relaxin = More than half the days Being so restless that it is hard to sit still: 3 = Nearly every day Becoming easily annoyed or irritable: 1 = Several days Feeling afraid as if something awful might happen: 0 = Not at all Total RINA-7 score (0-4 normal; 5-9 mild; 10-14 moderate; 15-21 severe): 10 Source: Developed by Drs. Bill Howe, Nallely Hercules, Noman Calles and colleagues, with an educational kelly from [employer]. RINA-7 Assessment Billing RINA-7 Assessment Tool: RINA-7 Assessment 76805 Physical exam (Primary Care) Vital Signs: Last Vital Signs Pulse 76 04/27/24 09:17 Resp 13 04/27/24 09:17 BP 136/84 04/27/24 09:17 Pulse Ox 99 04/27/24 09:17 Oxygen Delivery Method Room Air 04/27/24 09:17 BMI result Body Mass Index 20.5 Tobacco/Smoking Status: Tobacco use Status Tobacco use date assessed 04/27/24 04/27/24 09:30 Patient Tobacco Use Status Former Tobacco user 04/27/24 09:30 e-Cigarette/Vaping Use Never Used 04/27/24 09:30 PHQ-9: PHQ-9 Score PHQ-9: Total score 4 05/01/24 14:04 Depression Screening Interpretation: Negative (neg) Thrive Assessment: Date of Thrive Assessment Date Thrive assessed 04/27/24 04/27/24 09:33 Currently or been in a relationship where the following occur: No concerns reported Assessment and Plan Assessment & Plan (1) Urticarial vasculitis: Code(s): L95.8 - Other vasculitis limited to the skin Plan: continue follow up with A&I, rheumatology, dermatology prn (2) Afib: Code(s): I48.91 - Unspecified atrial fibrillation Qualifiers: Atrial fibrillation type: unspecified Qualified Code(s): I48.91 - Unspecified atrial fibrillation Plan: s/p ablation. Remains in sinus rhythm (3) COPD (chronic obstructive pulmonary disease): Code(s): J44.9 - Chronic obstructive pulmonary disease, unspecified Qualifiers: COPD type: chronic bronchitis Chronic bronchitis type: simple Qualified Code(s): J41.0 - Simple chronic bronchitis Plan: Follow up with pulmonary. no exacerbation (4) Dyslipidemia: Code(s): E78.5 - Hyperlipidemia, unspecified Plan: monitor labs. low saturated fat diet. (5) IgA deficiency: Code(s): D80.2 - Selective deficiency of immunoglobulin A [IgA] Plan: f/up immunology Orders: Orders Lipid Panel 04/27/24 Z12.5 - Encounter for screening for malignant neoplasm of prostate, Z13.220 - Encounter for screening for lipoid disorders Prostate Specific Antigen 04/27/24 Z12.5 - Encounter for screening for malignant neoplasm of prostate, Z13.220 - Encounter for screening for lipoid disorders Medications: New Trelegy Ellipta 200-62.5-25 mcg (hupswongavq-[id number]) 1 inh inhalation DAILY 1 ea 0RF 90 days NS lorazepam 1 mg PO DAILY PRN 30 tabs 0RF anxiety Changed From sertraline 25 mg PO DAILY To sertraline 25 mg PO DAILY 90 tabs 3RF 90 days Coding Level of Care Code Est Pt Level 5 (60238) Diagnoses Urticarial vasculitis L95.8 Atrial fibrillation, unspecified type I48.91 Atrial fibrillation type: unspecified Simple chronic bronchitis J41.0 COPD type: chronic bronchitis Chronic bronchitis type: simple Dyslipidemia E78.5 IgA deficiency D80.2 Additional Codes RINA-7 Assessment Billing - RINA-7 Assessment Tool: RINA-7 Assessment [id number] ([id number])
== END 2024-04-27 09:56 | disposition home or self-care (01) ==
PROVIDERS: PCP Internal Medicine; Visit Provider Internal Medicine
DX: I48.91 Unspecified atrial fibrillation (principal); J41.0 Simple chronic bronchitis; D80.2 Selective deficiency of immunoglobulin A [IgA]; L95.8 Other vasculitis limited to the skin; E78.5 Hyperlipidemia, unspecified
CPT/HCPCS: 99214

== ENCOUNTER 2024-05-07 07:21 | Outpatient (AMB) | payer OTHER, SELFPAY ==
--- NOTE | 2024-05-07 07:26 | MHC.OFFVIS ---
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 Allergies Penicillins [PENICILLINS] Allergy (Unknown, Verified 04/27/24 09:23) HIVES doxycycline Allergy (Verified 04/27/24 09:23) Hives oseltamivir [From Tamiflu] Allergy (Verified 04/27/24 09:23) Hives Medication List - Last Reconciled 05/07/24 by Jose Otero MD albuterol sulfate 90 mcg/actuation inhalation azelastine intranasal CPAP (CPAP Machine/Device) As directed epinephrine IM ibuprofen 200 mg PO Q6H PRN lorazepam 1 mg PO DAILY PRN pseudoephedrine HCl (Sudafed) 30 mg PO Q4-6H PRN sertraline 25 mg PO DAILY 90 days tamsulosin 0.4 mg PO DAILY Trelegy Ellipta 200-62.5-25 mcg (rvfzznjcbel-[id number]) 1 inh inhalation DAILY 90 days NS triamcinolone acetonide 0.1% 1 appl topical BID HPI Comments Details: 59-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 He states that he continues to have intermittent itchy rashes in different areas. He mostly uses Benadryl cream for symptomatic improvement. Sometimes uses triamcinolone cream. The rashes are overall stable. Has not had any significant flare-up. Two weeks ago he banged his left elbow, had swelling of his left elbow, he went to urgent care and elbow was wrapped, it resolved in a few days. Continues to have intermittent achy and stiff joints, joints crack. Initial history: This is a 57-year-old male with a past medical history of IgA deficiency, urticarial vasculitis, hives, obstructive sleep apnea, AFib, psoriasis who presents for evaluation urticarial vasculitis. Patient states that he was diagnosed with urticarial vasculitis for many years now. Stated that he has itchy skin rashes on his trunk hands and extremities. Stated that does lesions never go way but he would have flare-ups of worsening skin rashes and worsening pruritus. A few weeks ago he had flare-up affecting the back of both knees. He was started on a prednisone taper by his PCP with significant improvement. He also mentions a significant allergic reaction to penicillin a few years back and he was on antihistamines for some time. Mentions he was diagnosed with psoriasis many years ago usually affected his scalp and was treated with shampoos. This has not been a problem recently. Patient states he has bilateral knee and shoulder pain worse with activity but does are chronic and unrelated to his rashes. He denies any fevers, chills, weight changes. Denies any blood or froth in urine. [facility] Medical History IgA deficiency Anxiety Arthritis Dyslipidemia Psoriasis Restless leg Granuloma annulare Afib GERD (gastroesophageal reflux disease) DEYSI (obstructive sleep apnea) BPH (benign prostatic hyperplasia) Surgical History History of tonsillectomy Hx of inguinal hernia repair History of radiofrequency ablation (RFA) procedure for cardiac arrhythmia Family History Father Dementia Alzheimer disease Maternal Grandfather Colon cancer Social History Household Members: Family and Children Household Members Other:: Grandchildren Both parents involved: No Caregiver staying overnight: No Housing: House Are you a primary career technology teacher to a significant other at home: No Do you presently have visiting nurse or other home services: No 75 years or older and lives alone: No Alcohol intake: current Alcohol intake frequency: 0-2 drinks per day Alcohol type: beer Patient Tobacco Use Status: Former Tobacco user Years Smoked: Quit 7 years ago e-Cigarette/Vaping Use: Never Used service: No Current occupational status: employed 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 Current occupational exposures/hazards: No Cognitive needs: No Hearing needs: No Vision needs: Yes (experiencing changes, needs referral to ophthalmology) Review of Systems Const Denies fever(s) and Denies weight loss Musc Reports arthralgias and Reports stiffness Skin/Breast Reports pruritus and Reports rash Physical Exam Vital Signs: Last Vital Signs Pulse 83 05/07/24 07:32 BP 124/82 05/07/24 07:32 Pulse Ox 99 05/07/24 07:32 Oxygen Delivery Method Room Air 05/07/24 07:32 BMI result Body Mass Index 24.5 Const General: cooperative, healthy appearing, comfortable and no acute distress Nutritional Appearance: average body habitus Orientation/consciousness: patient oriented x3 Limitations: no limitations HEENT Head: Yes normocephalic and Yes atraumatic Resp Effort & Inspection: normal respiratory effort and able to speak in complete sentences Skin Other: No active rashes on the back Subtle excoriations on legs Neuro General: patient oriented x3 Extrem Other: No active synovitis Osteoarthritic changes of both hands Results Reviewed Results Reviewed: SKIN, BACK-SHAVE BIOPSY: ?-NODULAR HISTIOCYTIC DERMATITIS, CONSISTENT WITH GRANULOMA ANNULARE ?-PAS AND GMS STAINS NEGATIVE FOR FUNGI ?( ?CONTROLS APPROPRIATE ?) ? RENAE BHATIA M.D., PATHOLOGIST (CASE ELECTRONICALLY SIGNED 10 20 2015) SKIN, BACK-PUNCH BIOPSY: ?-PERIVASCULAR AND INTERSTITIAL MIXED LYMPHOCYTIC/EOSINOPHILIC DERMATITIS AND EDEMA CONSISTENT WITH URTICARIAL VASCULITIS ?-PAS AND GMS STAINS NEGATIVE FOR FUNGI ?( ?CONTROLS APPROPRIATE ?) ? RENAE BHATIA M.D., PATHOLOGIST (CASE ELECTRONICALLY SIGNED 12 19 2017) Assessment & Plan Assessment & Plan (1) Urticarial vasculitis: Code(s): L95.8 - Other vasculitis limited to the skin Category: Medical Plan: This is a 59-year-old male with a past medical history of IgA deficiency, urticarial vasculitis who presents for follow-up. Symptoms fairly stable, continues to have intermittent itchy rashes in different areas. Managed with Benadryl cream and triamcinolone cream. Has not had any significant rashes requiring DMARDs. Continue current management. Can use Benadryl nightly as needed for pruritus Follow-up in 6 months (2) Osteoarthritis of hands, bilateral: Code(s): M19.041 - Primary osteoarthritis, right hand; M19.042 - Primary osteoarthritis, left hand Category: Medical Qualifiers: Osteoarthritis type: primary Qualified Code(s): M19.041 - Primary osteoarthritis, right hand; M19.042 - Primary osteoarthritis, left hand Plan: No signs of inflammatory arthritis. Patient reassured Also has signs of mild flexor tendonitis of both hands as well as bilateral tennis elbow. Discussed with patient. Symptoms are mild, no need for any specific intervention at this point Plan I spent 30 minutes reviewing patient's chart, evaluating patient, counseling patient and documenting in the chart Medications: Refilled triamcinolone acetonide 0.1% 1 appl topical BID 80 grams 2RF Coding Level of Care Code Est Pt Level 4 (46024) Diagnoses Urticarial vasculitis L95.8 Primary osteoarthritis of both hands M19.041; M19.042 Osteoarthritis type: primary
[2024-05-07 07:32] VITALS: BP 124/82; PULSE 83; O2SAT 99; BMI 24.5
== END 2024-05-07 07:56 | disposition home or self-care (01) ==
PROVIDERS: PCP Internal Medicine; Visit Provider Student in an Organized Health Care Education/Training Program
DX: L95.8 Other vasculitis limited to the skin (principal); M19.041 Primary osteoarthritis, right hand; M19.042 Primary osteoarthritis, left hand
CPT/HCPCS: 99214

== ENCOUNTER → 2024-05-07 07:21 | Outpatient (BNVA) | payer OTHER, SELFPAY | PROVIDERS: PCP Internal Medicine; Visit Provider Student in an Organized Health Care Education/Training Program ==

== ENCOUNTER 2024-05-24 09:59 | Outpatient (REF) | payer OTHER, SELFPAY ==
[2024-05-24 12:32] LABS: Cholesterol 203 mg/dL (<200); HDL Cholesterol 67 mg/dL (>40); LDL Cholesterol Calculated 101 mg/dL (<100); Triglycerides 176 mg/dL (<150)
[2024-05-24 12:33] LABS: Prostate Specific Antigen 1.42 ng/mL (<0.05-4.0)
[2024-05-25 14:48] LABS: IgA <5 mg/dL (47-310); IgG 1207 mg/dL (600-1640); IgM 103 mg/dL (50-300)
[2024-05-29 16:39] LABS: Tetanus Antitoxiod Antibody 2.18 IU/mL
== END 2024-05-24 10:00 | disposition home or self-care (01) ==
LOC: HO.WFDLDS 09:59
PROVIDERS: Allergy & Immunology; Visit Provider Internal Medicine
DX: D80.2 Selective deficiency of immunoglobulin A [IgA] (principal); Z13.220 Encounter for screening for lipoid disorders; Z12.5 Encounter for screening for malignant neoplasm of prostate
CPT/HCPCS: 36415; 80061; 82784; 84153; 86317; 86648; 86774

== ENCOUNTER 2024-06-13 13:43 | Outpatient (AMB) | payer OTHER, SELFPAY ==
--- NOTE | 2024-06-13 13:01 | A.OFFVIS_ITS ---
Vital Signs 06/13/24 14:06 Height 5 ft 11 in Weight 153 lb 6 oz BMI 21.4 BP 142/88 H Blood Pressure Location Lt brachial Position Sitting Pulse 73 Pulse Source Pulse Oximeter Pulse Oximetry (%) 98 Oxygen Delivery Method Room Air Intake Visit Reasons: Chest CT results Allergies Penicillins [PENICILLINS] Allergy (Unknown, Verified 06/13/24 14:08) HIVES doxycycline Allergy (Verified 06/13/24 14:08) Hives oseltamivir [From Tamiflu] Allergy (Verified 06/13/24 14:08) Hives HPI HPI Chest CT results : Details: Yinka is a pleasant 59 year old male, former smoker with 30 pack year history, quit 9 years ago, with underlying COPD, DEYSI on CPAP ([facility]), allergic rhinitis, atrial fibrillation s/p ablation (6 years ago), IgA deficiency, GERD and anxiety. At the last visit, he started using Trelegy consistently and reports good control of respiratory symptoms. He does continue to report dyspnea on moderate exertion however his daily activities are not effected by dyspnea. He denies cough, wheezing or chest tightness. He does have albuterol MDI which he uses infrequently. He was previously a part of [facility]'s lung screening program but has been lost to follow up. Today he presents to review chest CT results. He denies any visits to urgent care or hospitalizations related to respiratory changes since the last visit. [facility] Medical History IgA deficiency Anxiety Arthritis Dyslipidemia Psoriasis Restless leg Granuloma annulare Afib GERD (gastroesophageal reflux disease) DEYSI (obstructive sleep apnea) BPH (benign prostatic hyperplasia) Surgical History History of tonsillectomy Hx of inguinal hernia repair History of radiofrequency ablation (RFA) procedure for cardiac arrhythmia Family History Father Dementia Alzheimer disease Maternal Grandfather Colon cancer Social History Household Members: Family and Children Household Members Other:: Grandchildren Both parents involved: No Caregiver staying overnight: No Housing: House Are you a primary caregiver assisted living to a significant other at home: No Do you presently have visiting nurse or other home services: No 75 years or older and lives alone: No Alcohol intake: current Alcohol intake frequency: 0-2 drinks per day Alcohol type: beer Patient Tobacco Use Status: Former Tobacco user Years Smoked: Quit 7 years ago e-Cigarette/Vaping Use: Never Used service: No Current occupational status: employed 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 Current occupational exposures/hazards: No Cognitive needs: No Hearing needs: No Vision needs: Yes (experiencing changes, needs referral to ophthalmology) Review of Systems Const Denies chills, Denies excessive sweating, Denies fever(s), Denies headache(s) and Denies night sweats Eyes Denies dry eyes, Denies irritation and Denies itchy eyes ENT Reports Normal hearing present, Denies headache(s), Denies nasal congestion, Denies nasal discharge, Denies post nasal drip and Denies sore throat Card Denies chest pain, Denies chest pain at rest, Denies chest pain with activity, Denies claudication, Denies leg edema, Denies orthopnea and Denies paroxysmal nocturnal dyspnea Resp Denies chest congestion, Denies excessive phlegm production, Denies pain on inspiration, Denies pain with cough and Denies stridor Musc Denies myalgias Neuro Reports Normal hearing present and Denies headache(s) Endo Denies excessive sweating Amando/Lymph Denies lymphadenopathy Aller/Immun Denies itchy eyes and Denies seasonal rhinorrhea Physical Exam Vital Signs: Last Vital Signs Pulse 73 06/13/24 14:06 BP 142/88 H 06/13/24 14:06 Pulse Ox 98 06/13/24 14:06 Oxygen Delivery Method Room Air 06/13/24 14:06 BMI result Body Mass Index 21.4 Const General: cooperative, healthy appearing, comfortable, no acute distress, well developed and alert Orientation/consciousness: patient oriented x3 Limitations: no limitations HEENT Head: Yes normal to inspection, Yes normocephalic and Yes atraumatic Ears: hearing grossly normal bilaterally and external ears normal Eyes General: appearance normal, both eyes and all related structures Eyelids: Yes eyelids normal Sclerae: sclerae normal EOM: EOMs intact bilaterally Neck Neck: Yes normal visual inspection and Yes no lymphadenopathy Lymphatic: no lymphadenopathy noted Chest Chest palpation & inspection: normal inspection of the chest Resp Effort & Inspection: normal respiratory effort, able to speak in complete sentences, no audible wheezes, no cough, no stridor, not tachypneic, no tripod positioning and no use of accessory muscles Auscultation: clear to auscultation bilaterally Cardio Jugular venous distension: no JVD Rate: regular rate Rhythm: regular rhythm Skin Other: warm, dry General skin exam: no rashes or lesions noted Neuro General: patient oriented x3 Cranial nerves: Yes Normal hearing present Cognition (Neuro): normal cognition Gait exam (Neuro): Normal gait present Extrem General: Yes normal to inspection, Yes capillary refill normal, Yes no clubbing, cyanosis or edema and Yes no pedal edema Psych Appearance: grossly normal and well kempt Speech and movement: Normal speech and movement present and Clear speech present Affect: normal affect Attitude: cooperative Thought process: Normal thought process present Thought content: Normal thought content present Insight: Good insight present (Psych) Judgement: Good judgement present (Psych) Results Reviewed Results Reviewed: [place] [address] CT Scan Report Signed Patient: Yinka Merino MR#: [id number] : 1965 Acct:[id number] Age/Sex: 59 / M ADM Date: 04/23/24 Loc: HO.CT Attending Dr: Mercedes Wright NP Ordering Physician: Mercedes Wright NP Date of Service: 04/23/24 Procedure(s): CT chest wo IV con Accession Number(s): [id number] cc: Adali Bal MD; Mercedes Wright NP~ EXAMINATION: CT CHEST WITHOUT CONTRAST CLINICAL INFORMATION: Nicotine dependence. COMPARISON: None available. TECHNIQUE: Multidetector volumetric CT imaging of the chest was done. Axial MIP volume rendering provided. Sagittal and coronal reformatted images were obtained. This CT examination was performed using dose optimization techniques as appropriate, variously including the following: *Automated exposure control *Adjustment of mA and/or kV according to patient size (this includes techniques or standardized protocols for targeted exams where dose is matched to indication/reason for exam; i.e. 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 LUNGS: There is biapical pleural and parenchymal scarring. There are centrilobular and paraseptal emphysematous changes, with a bilateral upper lobe predominance. There are biapical densities, possibly calcifications and/or surgical material. Laterally within the right upper lobe (7:111), a coarse benign, calcified granuloma is seen. Within the lateral basal segment of the right lower lobe (7:368), a 2 mm noncalcified nodule is seen. There are further benign, calcified granulomas at the right base. At the posterior left apex (7:51), a 3 mm noncalcified nodule is seen. Abutting the upper left major fissure (7:135), a 3 mm benign, pleural-based lymph node is seen. Within the anterior segment of the right upper lobe (7:275), a 2 mm noncalcified nodule is seen. Within the superior segment of the left lower lobe (7:218), a 2 mm noncalcified nodule is seen. Within the lateral basal segment of the left lower lobe (7:370 and 450), there are 3 mm and 5 mm noncalcified nodules. No mass, infiltrate or groundglass opacity is seen. There are bibasilar scattered foci of minor scar/subsegmental atelectasis, without associated focal airway obstruction. There is no generalized small airway thickening. The central airways appear patent. MEDIASTINUM: The thyroid is unremarkable. No sizable mediastinal or hilar lymphadenopathy is seen. There is no thoracic aortic aneurysm. CORONARY ARTERY CALCIFICATION: Mild. PLEURA: There is no pleural effusion. No pleural mass or thickening. AXILLA: No lymphadenopathy. UPPER ABDOMEN: There are multiple low-attenuation bilateral renal probable cysts, some too small for full characterization with CT. The included portions of the adrenal glands are unremarkable. OSSEOUS STRUCTURES: There is multi-level thoracolumbar spondylosis. No acute or aggressive osseous finding is noted. CT/CT chest wo IV con IMPRESSION: 1. There are bilateral pulmonary nodules, as detailed. The largest noncalcified nodule is situated at the lateral left base, measuring 5 mm. According to the UPDATED 2017 Fleischner Society recommendations, the advised follow-up imaging for solid nodules < 6 mm is: LOW RISK PATIENT: No routine follow-up. HIGH RISK PATIENT: Optional CT at 12 months. 2. There are centrilobular and paraseptal emphysematous changes, with a bilateral upper lobe predominance. 3. No mass, infiltrate or groundglass opacity is seen. 4. There are bibasilar scattered foci of mild scar/subsegmental atelectasis, without associated focal airway obstruction. 5. No thoracic lymphadenopathy or pleural effusion is seen. 6. There is multi-level thoracolumbar spondylosis. No aggressive osseous lesion is seen. Fleischner guidelines were followed. Electronically signed by: Xavier Beckwith MD 05/23/2024 09:27 AM EDT RP Dictated By: Xavier Beckwith MD Signed By: <Electronically signed by Xavier Beckwith MD in OV> 05/23/24926 DD/ 5 TD/TT: 04/23/24725 Health Insurance Adjuster: GENOVEVA Assessment & Plan Assessment & Plan (1) COPD (chronic obstructive pulmonary disease): Code(s): J44.9 - Chronic obstructive pulmonary disease, unspecified Category: Medical Qualifiers: COPD type: chronic bronchitis Chronic bronchitis type: simple Qualified Code(s): J41.0 - Simple chronic bronchitis (2) Personal history of tobacco use: Code(s): Z87.891 - Personal history of nicotine dependence Category: Social Hx (3) Multiple pulmonary nodules: Code(s): R91.8 - Other nonspecific abnormal finding of lung field Category: Medical Plan Reviewed chest CT which revealed emphysematous changes as well as multiple pulmonary nodules, <5 mm. Will repeat in one year to assess stability. Overall he reports good control of respiratory symptoms on current regimen. Advised to use albuterol PRN in addition to Trelegy if symptomatic. All questions were answered and patient is in agreement of plan. Will follow up in 3-6 months or sooner if needed. Orders: Orders CT chest wo IV con 10 Months R91.8 - Other nonspecific abnormal finding of lung field Medications: Changed From albuterol sulfate 90 mcg/actuation inhalation To albuterol sulfate 90 mcg/actuation 2 inhalations inhalation Q4-6H PRN 1 ea 3RF shortness of breath or wheezing Refilled Trelegy Ellipta 200-62.5-25 mcg (ytrhkxmsvaq-aeifosxvf-ccmftmqs) 1 inh inhalation DAILY 90 days 1 ea 0RF NS Coding Level of Care Code Est Pt Level 4 (86250) Diagnoses Simple chronic bronchitis J41.0 COPD type: chronic bronchitis Chronic bronchitis type: simple Personal history of tobacco use Z87.891 Multiple pulmonary nodules R91.8
[2024-06-13 14:06] VITALS: BP 142/88; PULSE 73; O2SAT 98; BMI 21.4
== END 2024-06-13 15:29 | disposition home or self-care (01) ==
PROVIDERS: PCP Internal Medicine; Visit Provider Nurse Practitioner Family
DX: J41.0 Simple chronic bronchitis (principal); Z87.891 Personal history of nicotine dependence; R91.8 Other nonspecific abnormal finding of lung field
CPT/HCPCS: 99214

== ENCOUNTER → 2024-06-13 13:43 | Outpatient (BNVA) | payer OTHER, SELFPAY | PROVIDERS: PCP Internal Medicine; Visit Provider Nurse Practitioner Family ==

== ENCOUNTER 2024-10-23 14:06 | Outpatient (AMB) | payer OTHER, SELFPAY ==
--- NOTE | 2024-10-23 14:17 | MHC.PC.OV ---
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 Manager Laboratory Required: No Allergies Penicillins [PENICILLINS] Allergy (Unknown, Verified 10/23/24 14:17) HIVES doxycycline Allergy (Verified 10/23/24 14:17) Hives oseltamivir [From Tamiflu] Allergy (Verified 10/23/24 14:17) Hives Tobacco use date assessed: 10/23/24 Dental Screening Dental Screen Date: 04/27/24 HPI HPI Comments History of Present Illness Details 59-year-old male with a past medical history of atrial fibrillation s/p ablation, hyperlipidemia, urticarial vasculitis, IgA deficiency, psoriasis, DEYSI, GERD, presenting for physical exam Urticaria vasculitis-IgA, C1q antibody, allergies. Follows with allergy and immunology, Dr Kan, and rheumatology at [facility] [place]. He has intermittent joint pain, rash. CV: s/p ablation 2014. Prior to that on flecainide and eliquis. Denies chest pain, dizziness, vision changes Pulmonary: Allergies, COPD on PFT, DEYSI on cpap. Seeing pulmonary. On trelegy MSK: Polyarthralgia. Left neck, shoulder and elbow pain. Diffuse aches pain Anxiety: On sertraline 25mg daily. Takes lorazepam at night BPH On tamsulosin. Follows with urology. Seen 04/2021. Preventive: Colonoscopy 07/02/2021-recommend repeat in 5 years for sessile polyp ROS CONSTITUTIONAL: Denies weight loss, fever and chills. HEENT: Denies changes in vision and hearing. RESPIRATORY: Denies SOB and cough. CV: Denies palpitations and CP GI: Denies abdominal pain, nausea, vomiting and diarrhea. : Denies dysuria and urinary frequency. MSK: Denies new myalgia and joint pain. SKIN: Denies rash and pruritus. NEUROLOGICAL: Denies headache PSYCHIATRIC: Denies recent changes in mood. PHYSICAL EXAM: GENERAL: Alert and oriented x 3. NAD EYES: EOMI. Anicteric. HENT: Moist mucous membranes. No scleral icterus. No cervical lymphadenopathy. LUNGS: Clear to auscultation bilaterally. CARDIOVASCULAR: Regular rate and rhythm. No murmur. No JVD. ABDOMEN: Soft, non-tender +bs EXTREMITIES: No edema. Non-tender. SKIN: No rashes or lesions. Warm. NEUROLOGIC: No focal neurological deficits. CN II-XII grossly intact PSYCHIATRIC: Cooperative. Appropriate mood and affect [facility] Medical History IgA deficiency Anxiety Arthritis Dyslipidemia Psoriasis Restless leg Granuloma annulare Afib GERD (gastroesophageal reflux disease) DEYSI (obstructive sleep apnea) BPH (benign prostatic hyperplasia) Surgical History History of tonsillectomy Hx of inguinal hernia repair History of radiofrequency ablation (RFA) procedure for cardiac arrhythmia Family History Father Dementia Alzheimer disease Maternal Grandfather Colon cancer Social History Household Members: Family and Children Household Members Other:: Grandchildren Housing: House Are you a primary healthcare architect to a significant other at home: No Do you presently have visiting nurse or other home services: No Alcohol intake: current Alcohol intake frequency: 0-2 drinks per day Alcohol type: beer Patient Tobacco Use Status: Former Tobacco user Years Smoked: Quit 7 years ago e-Cigarette/Vaping Use: Never Used service: No Current occupational status: employed 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 Current occupational exposures/hazards: No Cognitive needs: No Hearing needs: No Vision needs: Yes (experiencing changes, needs referral to ophthalmology) Questionnaire PHQ-9 Over the last 2 weeks, how often have you been bothered by any of the following problems? 1. Little interest or pleasure in doing things: several days 2. Feeling down, depressed, or hopeless: several days 3. Trouble falling or staying asleep, or sleeping too much: several days 4. Feeling tired or having little energy: not at all 5. Poor appetite or overeating: several days 6. Feeling bad about yourself - or that you are a failure or have let yourself or your family down: not at all 7. Trouble concentrating on things, such as reading the newspaper or watching television: several days 8. Moving or speaking so slowly that other people could have noticed. Or the opposite - being so fidgety or restless that you have been moving around a lot more than usual: several days 9. Thoughts that you would be better off or of hurting yourself in some way: not at all Total score: 6 Depression Screening Interpretation: Positive Depression Screening Follow-up: Existing condition Depression Screening Done: Yes 00792 - PHQ-9 Billing: Yes Source: Developed by Drs. Bill Howe, Nallely Hercules, Noman Calles and colleagues, with an educational kelly from [employer]. Thrive Questionnaire Date Thrive assessed: 10/23/24 I am a: Patient What is your living situation today?: I have a steady place to live Within the past 12 months, did the food you bought not last and you didn't have the money to get more?: Never true Within the past 12 months, did you worry whether your food would run out before you got money to buy more?: Never true Do you have trouble paying for medicines?: No Do you have trouble getting transportation to medical appointments?: No Do you have trouble paying your heating and electricity bill?: No Do you have trouble taking care of your child, family member or friend?: No Do you have trouble with day-to-day activities such as bathing, preparing meals, shopping, managing finances, etc.?: No Are you currently unemployed and looking for a job?: No Are you interested in more education?: No Please select the resources that you would like help with: None Currently or been in a relationship where the following occur: No concerns reported THRIVE Score: 0 AUDIT C Alcohol Use Questionnaire (AUDIT-C) 1. How often do you have a drink containing alcohol?: 4 or more times a week 2. How many drinks containing alcohol do you have on a typical day when you are drinking?: 1 or 2 3. How often do you have six or more drinks on one occasion?: Less than monthly Total Score: 5 RINA-7 AMB Questionnaire RINA-7 Date RINA - 7 assessed: 10/23/24 Feeling nervous, anxious, or on edge: 2 = More than half the days Not being able to stop or control worryin = Several days Worrying too much about different things: 1 = Several days Trouble relaxin = Not at all Being so restless that it is hard to sit still: 1 = Several days Becoming easily annoyed or irritable: 1 = Several days Feeling afraid as if something awful might happen: 0 = Not at all Total RINA-7 score (0-4 normal; 5-9 mild; 10-14 moderate; 15-21 severe): 6 Source: Developed by Drs. Bill Howe, Nallely Hercules, Noman Calles and colleagues, with an educational kelly from [employer]. RINA-7 Assessment Billing RINA-7 Assessment Tool: RINA-7 Assessment 11818 Physical exam (Primary Care) Vital Signs: Last Vital Signs Pulse 82 10/23/24 14:20 Resp 14 10/23/24 14:20 BP 130/88 10/23/24 14:20 Pulse Ox 98 10/23/24 14:20 Oxygen Delivery Method Room Air 10/23/24 14:20 BMI result Body Mass Index 20.4 Tobacco/Smoking Status: Tobacco use Status Tobacco use date assessed 10/23/24 10/23/24 14:24 Patient Tobacco Use Status Former Tobacco user 10/23/24 14:24 e-Cigarette/Vaping Use Never Used 10/23/24 14:24 PHQ-9: PHQ-9 Score PHQ-9: Total score 6 10/27/24 16:24 Depression Screening Interpretation: Positive Depression Screening Follow-up: Existing condition Thrive Assessment: Date of Thrive Assessment Date Thrive assessed 10/23/24 10/23/24 14:24 Currently or been in a relationship where the following occur: No concerns reported Coding Level of Care Code Est Pt Prev Care 40-64y(63542) Diagnoses Physical exam Z00.00 Dyslipidemia E78.5 Simple chronic bronchitis J41.0 COPD type: chronic bronchitis Chronic bronchitis type: simple IgA deficiency D80.2 Atrial fibrillation, unspecified type I48.91 Atrial fibrillation type: unspecified Additional Codes RINA-7 Assessment Billing - RINA-7 Assessment Tool: RINA-7 Assessment 26252 ([id number]) PHQ-9 - 20178 - PHQ-9 Billing: Yes ([id number]) Assessment & Plan Assessment & Plan (1) Physical exam: Code(s): Z00.00 - Encounter for general adult medical examination without abnormal findings Category: Medical Plan: 59 y/o male presenting for physical exam. Chronic medical conditions reviewed. Interval history reviewed. Medications reconciled Preventive measures for age discussed (2) Dyslipidemia: Code(s): E78.5 - Hyperlipidemia, unspecified Category: Medical Plan: continue current medications (3) COPD (chronic obstructive pulmonary disease): Code(s): J44.9 - Chronic obstructive pulmonary disease, unspecified Category: Medical Qualifiers: COPD type: chronic bronchitis Chronic bronchitis type: simple Qualified Code(s): J41.0 - Simple chronic bronchitis Plan: stable (4) IgA deficiency: Code(s): D80.2 - Selective deficiency of immunoglobulin A [IgA] Category: Medical Plan: continue follow up (5) Afib: Code(s): I48.91 - Unspecified atrial fibrillation Category: Medical Qualifiers: Atrial fibrillation type: unspecified Qualified Code(s): I48.91 - Unspecified atrial fibrillation Plan: stable Orders: Orders Complete Blood Count Auto Diff 10/23/24 D80.2 - Selective deficiency of immunoglobulin A [IgA], E78.5 - Hyperlipidemia, unspecified, I48.91 - Unspecified atrial fibrillation, J41.0 - Simple chronic bronchitis Comprehensive Met. Panel 10/23/24 D80.2 - Selective deficiency of immunoglobulin A [IgA], E78.5 - Hyperlipidemia, unspecified, I48.91 - Unspecified atrial fibrillation, J41.0 - Simple chronic bronchitis Lipid Panel 10/23/24 D80.2 - Selective deficiency of immunoglobulin A [IgA], E78.5 - Hyperlipidemia, unspecified, I48.91 - Unspecified atrial fibrillation, J41.0 - Simple chronic bronchitis TSH reflex Free T4 10/23/24 D80.2 - Selective deficiency of immunoglobulin A [IgA], E78.5 - Hyperlipidemia, unspecified, I48.91 - Unspecified atrial fibrillation, J41.0 - Simple chronic bronchitis
[2024-10-23 14:20] VITALS: BP 130/88; PULSE 82; RESP 14; O2SAT 98; BMI 20.4
--- OUTSIDE RECORDS SUMMARY | 2024-10-23 17:38 | XMS_ITS | Clinical Summary ---
Author Organization [facility] it Address [address] [place] [address] Care Team Providers Care Aitchbone Breaker Name Role Phone Unavailable Primary Care Provider Unavailabl e Surgical History Surgery Date Site/Laterality Comments TONSILLECTOMY ADENOIDECTOMY, BILATERAL MYRINGOTOMY AND TUBES PROCEDURE: [place] TONSILLECTOMY & ADENOIDECTOMY <AGE 11 HERNIA REPAIR 08/2001 PROCEDURE: LAPAROSCOPY, INGUINAL HERNIA REPAIR; COMMENT: bilateral COLONOSCOPY 06/2015 PROCEDURE: HISTORICAL COLONOSCOPY; COMMENT: polypectomies (hyperplastic polyps) , hemorrhoids Medical History Medical History Date Comments Lumbago DX:Lumbago Allergic rhinitis, cause unspecified DX:Allergic rhinitis, cause unspecified Other psoriasis 06/02/2006 DX:Other psorias is Pain in joint, lower leg 06/02/2006 DX:Pain in joint, lower leg Routine general medical exam ination at a health care facility 06/02/2006 DX:Routine general medical examination at a health care facility; COMMENT: normal EKG , chest x-ray normal normal liver dysfunction tests 12/27, normal urinalysis , cholesterol 228 , comprehensive metabolic profile normal normal CBC Pure hypercholesterolemia 06/02/2006 DX:Pur e hypercholesterolemia; COMMENT: cholesterol 228 IgA deficiency (CMS/HCC) DX:IgA deficiency (HCC) Family History Medical History Relation Name Comments Heart attack Father mid-50's Other: gastric ulcer Father Alcohol/Drug Maternal Grandfather Colon cancer Maternal Grandfather Stroke Maternal Grandmother Other: afib Sister 1 Diabetes Neg Hx Hypertension Neg Hx Relation Name Status Comments Brother Alive healthy Daughter Alive healthy Father (Age 85) [place] in 60s, gastritis - HTN; dementia Maternal Grandfather colon c ancer in 90s, alcholism Maternal Grandmother cva - b patricia embolism Mother Alive chol; mac degen eration Paternal Grandfather (Age 80s) o ld age Paternal Grandmother (Age 90s) o ld age Sister 1 Alive brain tumor pos sible meningioma - seizure Sister 2 Alive healthy - skin cancer Son Alive healthy Social History Tobacco Use Types Packs/Day Years Used Date Smoking Tobacco: Former Cigarettes Q uit: 07/18/2015 Smokeless Tobacco: Never Quit: 09/19/2014 Alcohol Use Standard Drinks/Week Comments Yes 3.3 (1 standard drink = 0.6 oz p ure alcohol) Sex and Gender Information Value Date Recorded Sex Assigned at Not on file Legal Sex Male 2:54 AM EST Gender Identity Not on file Sexual Orientation Not on file Obstetrics History Last Filed Vital Signs Vital Sign Reading Time Taken Comments Blood Pressure 138/96 09/30/2022 8:12 AM EST Sitting L Arm Pulse 86 09/30/2022 8:12 AM EST Temperature - - Respiratory Rate - - Oxygen Saturation - - Inhaled Oxygen Concentration - - Weight 75.5 kg (166 lb 6.4 oz) 09/30/2022 8:12 AM EST Height 180.3 cm (5' 11 ) 09/30/2022 8:1 2 AM EST Body Mass Index 23.21 09/30/2022 8:12 AM EST Plan of Treatment Health Maintenance Due Date Last Done Comments Pneumococcal Vaccine: 50+ Years (1 of 2 - PCV) 1983 Pneumococcal Vaccine: Pediatrics (0 to 5 Years) and At-Risk Patients (6 to 64 Years) (1 of 2 - PCV) 1983 Zoster Vaccines (1 of 2) 1983 COVID-19 Vaccine (3 - Pfizer risk series) 12/30/2020 12/02/2020, 11/10/2020 DTaP,Tdap,and Td Vaccines (4 - Td or Tdap) 03/04/2021 03/04/2011, 06/02/2006, 01/27/1971 Cholesterol Screening (Lipid Panel) 08/07/2022 Depression Screening 08/07/2022 HIV Screening 08/07/2022 Hepatitis C Screening 08/07/2022 Social Influencers of Health Screening 08/07/2022 Lung Cancer Screening (Low Dose CT) 09/21/2023 09/21/2022, 09/14/2021 RSV Immunization Patients 60 + Years Old (1 - Risk 60-74 years 1-dose series) 2024 Influenza Vaccine (#1) 2024 Colorectal Cancer Screening: Colonoscopy 07/05/2026 HIB Vaccines Aged Out No longer eligi ble based on patient's age to complete this topic HPV Vaccines Aged Out No longer eligi ble based on patient's age to complete this topic Hepatitis A Vaccines Aged Out No long er eligible based on patient's age to complete this topic Hepatitis B Vaccines Aged Out No long er eligible based on patient's age to complete this topic IPV Vaccines Aged Out No longer eligi ble based on patient's age to complete this topic MMR Vaccines Aged Out No longer eligi ble based on patient's age to complete this topic Meningococcal ACWY Vaccine Aged Out N o longer eligible based on patient's age to complete this topic Meningococcal B Vacine Aged Out No lo nger eligible based on patient's age to complete this topic RSV Immunization Patients Under 20 months Aged Out No longer eligible b ased on patient's age to complete this topic Varicella Vaccines Aged Out No longer eligible based on patient's age to complete this topic Procedures Procedure Name Priority Date/Time Associated Diagnosis Comments CT LUNG SCREENING LOW DOSE Routine 09/21/2022 10:43 AM EST Personal history of nicotine dependence from Last 3 Months or Most Recently Relevant to Health Maintenance Results * CT LUNG SCREENING LOW DOSE (09/21/2022 10:43 AM EST) Anatomical Region Laterality Modality Computed Tomogra phy 09/20/2022 4:40 PM EST Narrative 09/21/2022 10:43 AM EST [facility] Diagnostic Imaging Department [address] [place], [place] [id number] Patient: ??YINKA MERINO ?/Age/Sex: 1965 - 57 - M Unit#: ??[id number] ? Location/Status: ??SPDICATLS/REG CLI ? Mnemonic/Ordering Site: ??CTLUNGLD/SPCT Ordering Physician: ??HERLINDA MACDONALD MD CT Lung Screening Low Dose - 09/20/22 - 164 History: ??57 year-old 33 pack-year former smoker, asymptomatic, for lung cancer screening. Quit smoking 7 years ago. Comparison: 09/14/21 Technique: Helical volumetric imaging of the thorax was performed, using low- dose technique, without IV contrast. DLP: 126.07 mGy/cm ??CTDIvol: 3.22 mGy Symvato VCT Iterative reconstruction technique Findings: Lungs and Airways: The trachea and central bronchial tree remain patent. Centrilobular and paraseptal emphysema are again noted. Minimal biapical partially calcified pleural parenchymal scarring is unchanged. There is new juxtamediastinal atelectasis or scar in the posteromedial left lower lobe. A 3 mm solid, noncalcified nodule is unchanged in the left lung apex (image 29 series 4). Also unchanged is a 5 mm solid, noncalcified nodule in the lateral aspect of the left lower lobe (image 168). No suspicious developing nodule is seen. Pleura: No pleural or pericardial effusions are seen. Base of neck, mediastinum and heart: No developing thoracic lymphadenopathy is noted. The heart remains normal in size. Soft tissues: The overlying soft tissues are unremarkable. Abdomen: This study was performed without contrast and with lower than standard dose. These factors reduce the sensitivity for detection of small lesions in the upper abdomen. Scattered hepatic cysts are again noted. Impression: No suspicious developing pulmonary nodule. No significant change. Lung RADS 2: Benign Appearance or Behavior - Continue annual screening with LDCT in 12 months. 33602 G9637 G9557 G9551 Dictating Physician: ??BEBA HOUSTON MD Electronically Signed by: ??BEBA HOUSTON MD Dic Date/Time: ??09/21/22 1033 Sign date/Time: ??09/21/22 1043 Procedure Note Beba Houston MD - 09/30/2023 [facility] Diagnostic Imaging Department [address] [place] [id number] Patient: YINKA MERINO /Age/Sex: 1965 - 57 - M Unit#: [id number] Location/Status: [facility] CLI Mnemonic/Ordering Site: [facility] [place] Ordering Physician: HERLINDA MACDONALD MD CT Lung Screening Low Dose - 09/20/22 - 1649 History: 57 year-old 33 pack-year former smoker, asymptomatic, for lungcancer screening. Quit smoking 7 years ago. Comparison: 09/14/21 Technique: Helical volumetric imaging of the thorax was performed, usinglow- dose technique, without IV contrast. DLP: 126.07 mGy/cm CTDIvol: 3.22 mGy Symvato VCT Iterative reconstruction technique Findings: Lungs and Airways: The trachea and central bronchial tree remain patent. Centrilobular and paraseptal emphysema are again noted. Minimal biapical partially calcified pleural parenchymal scarring is unchanged. There isnew juxtamediastinal atelectasis or scar in the posteromedial left lowerlobe. A 3 mm solid, noncalcified nodule is unchanged in the left lung apex(image 29 series 4). Also unchanged is a 5 mm solid, noncalcified nodule in thelateral aspect of the left lower lobe (image 168). No suspicious developing nodule is seen. Pleura: No pleural or pericardial effusions are seen. Base of neck, mediastinum and heart: No developing thoraciclymphadenopathy is noted. The heart remains normal in size. Soft tissues: The overlying soft tissues are unremarkable. Abdomen: This study was performed without contrast and with lower thanstandard dose. These factors reduce the sensitivity for detection of small lesionsin the upper abdomen. Scattered hepatic cysts are again noted. Impression: No suspicious developing pulmonary nodule. No significant change. Lung RADS 2: Benign Appearance or Behavior - Continue annual screeningwith LDCT in 12 months. 11351 G9637 G9557 G9551 Dictating Physician: BEBA HOUSTON MD Electronically Signed by: BEBA HOUSTON MD Dic Date/Time: 09/21/22 1033 Sign date/Time: 09/21/22 1043 Herlinda Macdonald MD IMG CT PROCEDURES Final Result from Last 3 Months or Most Recently Relevant to Health Maintenance
== END 2024-10-23 15:07 | disposition home or self-care (01) ==
PROVIDERS: PCP Internal Medicine; Visit Provider Internal Medicine
DX: Z00.00 Encounter for general adult medical examination without abnormal findings (principal); J41.0 Simple chronic bronchitis; D80.2 Selective deficiency of immunoglobulin A [IgA]; I48.91 Unspecified atrial fibrillation; E78.5 Hyperlipidemia, unspecified

== ENCOUNTER → 2024-10-23 14:06 | Outpatient (BNVA) | payer OTHER, SELFPAY | PROVIDERS: PCP Internal Medicine; Visit Provider Internal Medicine | DX: Z00.00 Encounter for general adult medical examination without abnormal findings (principal); E78.5 Hyperlipidemia, unspecified; J41.0 Simple chronic bronchitis; D80.2 Selective deficiency of immunoglobulin A [IgA]; I48.91 Unspecified atrial fibrillation; F41.9 Anxiety disorder, unspecified; N40.0 Benign prostatic hyperplasia without lower urinary tract symptoms; Z79.899 Other long term (current) drug therapy | CPT/HCPCS: 96127 ==

== ENCOUNTER 2024-10-23 15:11 | Outpatient (REF) | payer OTHER, SELFPAY ==
[2024-10-23 18:02] LABS: MANUAL DIFF FLAG NO
[2024-10-23 18:13] LABS: Basophils Percent Auto 0.6 % (0-2); Eosinophils Absolute Auto 0.1 X10*3/uL (0.0-0.4); Eosinophils Percent Auto 1.1 % (0-4); Hematocrit 43.7 % (42.0-52.0); Hemoglobin 14.9 g/dl (14.0-18.0); Imm Gran Abs Auto 0.02 X10*3/uL (0.00-0.03); Imm Gran Pct Auto 0.3 % (0.0-0.4); Lymphocytes Absolute Auto 1.4 X10*3/uL (1.2-4.9); Lymphocytes Percent Auto 22.9 % (20-40); Mean Corpuscular HGB Conc 34.1 g/dl (31.0-36.0); Mean Corpuscular Hemoglobin 31.8 pg (27.0-33.0); Mean Corpuscular Volume 93.2 fL (80.0-98.0); Mean Platelet Volume 9.4 fL (9.4-12.4); Monocytes Absolute Auto 0.9 X10*3/uL (0.1-1.2); Monocytes Percent Auto 14.1 % (2-11); Neutrophils Absolute Auto 3.8 x10*3/uL (2.0-8.3); Platelet Count 293 X10*3/uL (160-400); Red Blood Count 4.69 X10*6/uL (4.60-5.80); Red Cell Distribution Width 12.5 % (11.0-16.0); White Blood Count 6.2 X10*3/uL (4.8-10.8)
[2024-10-23 18:33] LABS: Alanine Aminotransferase 92 U/L (0-40); Albumin Level 4.2 g/dL (3.5-5.0); Alkaline Phosphatase 76 U/L (39-117); Anion Gap 11 (12-20); Aspartate Amino Transferase 53 U/L (5-37); Bilirubin Total 0.4 mg/dL (0.0-1.0); Blood Urea Nitrogen 25 mg/dL (9-16); Calcium 9.5 mg/dL (8.4-10.2); Carbon Dioxide 27 mmol/L (22-29); Chloride 106 mmol/L (96-108); Cholesterol 195 mg/dL (<200); Estimated Glomerular Filt Rate > 60; Glucose Random 75 mg/dL (60-115); HDL Cholesterol 67 mg/dL (>40); LDL Cholesterol Calculated 105 mg/dL (<100); Potassium 3.9 mmol/L (3.3-5.1); Sodium 140 mmol/L (135-145); Total Protein 7.6 g/dL (6.5-8.0); Triglycerides 118 mg/dL (<150)
[2024-10-23 18:49] LABS: TSH reflex Free T4 1.31 uIU/mL (0.32-4.0)
--- OUTSIDE RECORDS SUMMARY | 2024-10-23 18:57 | XMS_ITS | Clinical Summary ---
Author Organization [facility] it Address [address] [place] [address] Care Team Providers Care Welcome Desk Agent Name Role Phone Unavailable Primary Care Provider Unavailabl e Surgical History Surgery Date Site/Laterality Comments TONSILLECTOMY ADENOIDECTOMY, BILATERAL MYRINGOTOMY AND TUBES PROCEDURE: [place] TONSILLECTOMY & ADENOIDECTOMY <AGE 11 HERNIA REPAIR [...] healthy Daughter Alive healthy Father (Age 85) [place] in 60s, gastritis - HTN; dementia Maternal [...] PM EST Narrative 09/21/2022 10:43 AM EST [facility] Diagnostic Imaging Department [address] [place], [place] [id number] Patient: ??YINKA MERINO ?/Age/Sex: 1965 - 57 - M Unit#: ??[id number] ? Location/Status: ??SPDICATLS/REG CLI ? Mnemonic/Ordering Site: ??CTLUNGLD/SPCT Ordering Physician: ??HERLINDA MACDONALD MD CT Lung Screening Low Dose - 09/20/22 - 164 History: ??57 year-old 33 pack-year former smoker, asymptomatic, for lung cancer screening. Quit smoking 7 years ago. Comparison: 09/14/21 Technique: Helical volumetric imaging of the thorax was performed, using low- dose technique, without IV contrast. DLP: 126.07 mGy/cm ??CTDIvol: 3.22 mGy Bow & Drape VCT Iterative reconstruction technique Findings: Lungs and [...] annual screening with LDCT in 12 months. [id number] G9637 G9557 G9551 Dictating Physician: ??BEBA HOUSTON MD Electronically Signed by: ??BEBA HOUSTON MD Dic Date/Time: ??09/21/22 1033 Sign date/Time: ??09/21/22 1043 Procedure Note Beba Houston MD - 09/30/2023 [facility] Diagnostic Imaging Department [address] [place] [id number] Patient: YINKA MERINO /Age/Sex: 1965 - 57 - M Unit#: [id number] Location/Status: [facility] CLI Mnemonic/Ordering Site: [facility] Ordering Physician: HERLINDA MACDONALD MD CT Lung Screening Low Dose - 09/20/22 - 1649 History: 57 year-old 33 pack-year former smoker, asymptomatic, for lungcancer screening. Quit smoking 7 years ago. Comparison: 09/14/21 Technique: Helical volumetric imaging of the thorax was performed, usinglow- dose technique, without IV contrast. DLP: 126.07 mGy/cm CTDIvol: 3.22 mGy Bow & Drape VCT Iterative reconstruction technique Findings: Lungs and [...] Continue annual screeningwith LDCT in 12 months. [id number] G9637 G9557 G9551 Dictating Physician: BEBA HOUSTON MD Electronically Signed by: BEBA HOUSTON MD Dic Date/Time: 09/21/22 1033 Sign date/Time: 09/21/22 1043 Herlinda Macdonald MD IMG CT PROCEDURES Final Result from Last 3 Months or Most Recently Relevant to Health Maintenance
== END 2024-10-23 15:12 | disposition home or self-care (01) ==
LOC: HO.WFDLDS 15:11
PROVIDERS: Visit Provider Internal Medicine
DX: D80.2 Selective deficiency of immunoglobulin A [IgA] (principal); I48.91 Unspecified atrial fibrillation; E78.5 Hyperlipidemia, unspecified; J41.0 Simple chronic bronchitis
CPT/HCPCS: 36415; 80053; 80061; 84443; 85025

== ENCOUNTER 2024-12-05 09:21 | Outpatient (AMB) | payer OTHER, SELFPAY ==
--- NOTE | 2024-12-05 09:47 | AM.OFFWIN_ITS ---
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: No Allergies Penicillins [PENICILLINS] Allergy (Unknown, Verified 12/05/24 10:10) HIVES doxycycline Allergy (Verified 12/05/24 10:10) Hives oseltamivir [From Tamiflu] Allergy (Verified 12/05/24 10:10) Hives Medication List - Last Reconciled 12/05/24 by CRISTÓBAL KruseP- albuterol sulfate 90 mcg/actuation 2 inhalations inhalation Q4-6H PRN azelastine intranasal CPAP (CPAP Machine/Device) As directed epinephrine IM ibuprofen 200 mg PO Q6H PRN lorazepam 1 mg PO DAILY pseudoephedrine HCl (Sudafed) 30 mg PO Q4-6H PRN sertraline 25 mg PO DAILY 90 days tamsulosin 0.4 mg PO DAILY Trelegy Ellipta 200-62.5-25 mcg (uysqhpdcynl-sizzshvcj-nxheaxpt) 1 inh inhalation DAILY 90 days NS triamcinolone acetonide 0.1% 1 appl topical BID Do you need a note to return to daycare/school/sports/work: No HPI HPI Comments History of Present Illness Details PCP Sheree History - The patient is a 59-year-old male pres enting with respiratory symptoms & vomiting - Symptoms began three weeks ago with th e onset of a cough productive of green and brown phlegm following exposure to a flooded basement at work. - He notes persistent vomiting and decre ased appetite, with decreased success in oral intake without emesis. - Accompanied by secondary symptoms of j oint aches, blurry vision, and headaches. - Chronic history of COPD, reporting a s light increase in wheezing since illness onset, increased inhaler usage noted. - Experienced environmental exposure to unpleasant odors and stagnant water. Denies fever, chills, hemoptysis, abd pain. Responds well to Zpak usually. Other notes: - Reports persistent tendon pain possibl y linked to osteoarthritis, with no resolution. Presents for months. Exam: Awake alert NAD Sclera and conjunctiva clear bilat Nares patent, turbinates within normal limits, no sinus tenderness with palpation bilat TM intact and clear bilat MMM, pharynx WNL RRR LS faint exp wheeze LLL otherwise clear and dim throughout Discussion Notes Considering his COPD history, I recommended azithromycin, which the patient has found effective in previous episodes. I reinforced the importance of follow-up with his primary care provider, Dr. Bal, if symptoms fail to improve following the course of antibiotics. I emphasized that if vomiting persists or appetite does not return, further evaluation is warranted. Recommendations include arranging a follow-up within the next couple of weeks for continued evaluation, especially concerning the persistent joint pain in RLE. Patient Instructions - Prescribed course of azithromycin as d irected. - Monitor symptoms for signs of improvem ent. - Use the inhaler as needed for wheezing . - Schedule a follow-up visit with Dr. Rafat Inman as advised Consent Patient was informed and verbally consented to the use of an ambient scribe for clinic note documentation during this visit. [facility] Medical History IgA deficiency Anxiety Arthritis Dyslipidemia Psoriasis Restless leg Granuloma annulare Afib GERD (gastroesophageal reflux disease) DEYSI (obstructive sleep apnea) BPH (benign prostatic hyperplasia) Surgical History History of tonsillectomy Hx of inguinal hernia repair History of radiofrequency ablation (RFA) procedure for cardiac arrhythmia Family History Father Dementia Alzheimer disease Maternal Grandfather Colon cancer Social History Household Members: Family and Children Household Members Other:: Grandchildren Both parents involved: No Caregiver staying overnight: No Housing: House Are you a primary health and social care teacher to a significant other at home: No Do you presently have visiting nurse or other home services: No 75 years or older and lives alone: No Alcohol intake: current Alcohol intake frequency: 0-2 drinks per day Alcohol type: beer Patient Tobacco Use Status: Former Tobacco user Years Smoked: Quit 7 years ago e-Cigarette/Vaping Use: Never Used service: No Current occupational status: employed 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 Current occupational exposures/hazards: No Cognitive needs: No Hearing needs: No Vision needs: Yes (experiencing changes, needs referral to ophthalmology) Physical Exam Vital Signs: Last Vital Signs Temp 97.8 F 12/05/24 09:50 Pulse 90 12/05/24 09:50 Resp 13 12/05/24 09:50 BP 138/78 12/05/24 09:50 Pulse Ox 97 12/05/24 09:50 Oxygen Delivery Method Simple Mask 12/05/24 09:50 BMI result Body Mass Index 20.0 Assessment & Plan Assessment & Plan (1) COPD (chronic obstructive pulmonary disease): Code(s): J44.9 - Chronic obstructive pulmonary disease, unspecified Qualifiers: COPD type: chronic bronchitis Chronic bronchitis type: simple Qualified Code(s): J41.0 - Simple chronic bronchitis (2) Nausea and vomiting: Code(s): R11.2 - Nausea with vomiting, unspecified Qualifiers: Vomiting type: unspecified Qualified Code(s): R11.2 - Nausea with vomiting, unspecified (3) Right leg pain: Code(s): M79.604 - Pain in right leg Plan . Medications: New azithromycin For 250 mg dose pack: take 500 mg today (day 1), then 250 mg for 4 days (days 2-5) PO 5 days 6 tabs 0RF Coding Level of Care Code Est Pt Level 4 (84034) Diagnoses Simple chronic bronchitis J41.0 COPD type: chronic bronchitis Chronic bronchitis type: simple Nausea and vomiting, unspecified vomiting type R11.2 Vomiting type: unspecified Right leg pain M79.604
[2024-12-05 09:50] VITALS: BP 138/78; PULSE 90; RESP 13; TEMP 36.6; O2SAT 97
--- OUTSIDE RECORDS SUMMARY | 2024-12-05 10:00 | XMS_ITS | Clinical Summary ---
Author Organization [facility] it Address [address] [place] [address] Care Team Providers Care Senior Merchandiser Name Role Phone Unavailable Primary Care Provider Unavailabl e Surgical History Surgery Date Site/Laterality Comments TONSILLECTOMY ADENOIDECTOMY, BILATERAL MYRINGOTOMY AND TUBES PROCEDURE: HI TONSILLECTOMY & ADENOIDECTOMY <AGE 11 HERNIA REPAIR [...] healthy Daughter Alive healthy Father (Age 85) [place] in 60s, gastritis - HTN; dementia Maternal [...] Dose CT) 09/21/2023 09/21/2022, 09/14/2021 RSV Immunization Adult Patients (1 - Risk 60-74 years 1-dose series) [...] age to complete this topic Meningococcal B Vaccine Aged Out No l onger eligible based on patient's age to complete [...] PM EST Narrative 09/21/2022 10:43 AM EST [facility] Diagnostic Imaging Department [address] [place] [id number] Patient: ??YINKA MERINO ?/Age/Sex: 1965 - 57 - M Unit#: ??[id number] ? Location/Status: ??SPDICATLS/REG CLI ? Mnemonic/Ordering Site: ??CTLUNGLD/SPCT Ordering Physician: ??HERLINDA MACDONALD MD CT Lung Screening Low Dose - 09/20/22 - 164 History: ??57 year-old 33 pack-year former smoker, asymptomatic, for lung cancer screening. Quit smoking 7 years ago. Comparison: 09/14/21 Technique: Helical volumetric imaging of the thorax was performed, using low- dose technique, without IV contrast. DLP: 126.07 mGy/cm ??CTDIvol: 3.22 mGy Inspire VCT Iterative reconstruction technique Findings: Lungs and [...] annual screening with LDCT in 12 months. [id number] [id number] G9557 G9551 Dictating Physician: ??BEBA HOUSTON MD Electronically Signed by: ??BEBA HOUSTON MD Dic Date/Time: ??09/21/22 1033 Sign date/Time: ??09/21/22 1043 Procedure Note Beba Houston MD - 09/30/2023 [facility] Diagnostic Imaging Department [address] [place] [id number] Patient: RICKYYINKA./Age/Sex: 1965 - 57 - M Unit#: [id number] Location/Status: [facility] CLI Mnemonic/Ordering Site: [facility] Ordering Physician: HERLINDA MACDONALD MD CT Lung Screening Low Dose - 09/20/22 - 1649 History: 57 year-old 33 pack-year former smoker, asymptomatic, for lungcancer screening. Quit smoking 7 years ago. Comparison: 09/14/21 Technique: Helical volumetric imaging of the thorax was performed, usinglow- dose technique, without IV contrast. DLP: 126.07 mGy/cm CTDIvol: 3.22 mGy Inspire VCT Iterative reconstruction technique Findings: Lungs and [...] Continue annual screeningwith LDCT in 12 months. [id number] G9637 G9557 G9551 Dictating Physician: BEBA HOUSTON MD Electronically Signed by: BEBA HOUSTON MD Dic Date/Time: 09/21/22 1033 Sign date/Time: 09/21/22 1043 Herlinda Macdonald MD IMG CT PROCEDURES Final Result from Last 3 Months or Most Recently Relevant to Health Maintenance
== END 2024-12-05 10:18 | disposition home or self-care (01) ==
LOC: HO.HMCWIW 09:21
PROVIDERS: PCP Internal Medicine; Visit Provider Nurse Practitioner Family
DX: J41.0 Simple chronic bronchitis (principal); R11.2 Nausea with vomiting, unspecified; M79.604 Pain in right leg

== ENCOUNTER → 2024-12-05 09:21 | Outpatient (BNVA) | payer OTHER, SELFPAY | PROVIDERS: PCP Internal Medicine; Visit Provider Nurse Practitioner Family | DX: Z13.89 Encounter for screening for other disorder (principal) ==

== ENCOUNTER 2024-12-25 15:16 | Outpatient (AMB) | payer OTHER, SELFPAY ==
--- NOTE | 2024-12-25 15:33 | MHC.PC.OV ---
Vital Signs 12/25/24 15:35 Height 5 ft 11 in Weight 147 lb 2 oz BMI 20.5 BP 136/82 Blood Pressure Location Rt brachial Position Sitting Respiration 14 Pulse 88 Pulse Source Pulse Oximeter Pulse Oximetry (%) 98 Oxygen Delivery Method Room Air Intake Visit Reasons: 2-3 weeks fu right leg pain, COPD, GI sx Intake Note: Follow up Allergies Penicillins [PENICILLINS] Allergy (Unknown, Verified 12/25/24 15:33) HIVES doxycycline Allergy (Verified 12/25/24 15:33) Hives oseltamivir [From Tamiflu] Allergy (Verified 12/25/24 15:33) Hives Tobacco use date assessed: 12/25/24 Dental Screening Dental Screen Date: 04/27/24 Did you have a dental visit in the last 12 months?: No Did you have a dental problem in the last 6 months where you did not have access to dental care?: No Was dental information given to patient?: Patient declined HPI HPI Comments History of Present Illness Details 59-year-old male with a past medical history of atrial fibrillation s/p ablation, hyperlipidemia, urticarial vasculitis, IgA deficiency, psoriasis, DEYSI, GERD, presenting for follow up Recently seen by colleague for a 3 week history of respiratory symptoms & vomiting - Symptoms began three weeks ago with the onset of a cough productive of green and brown phlegm following exposure to a flooded basement at work. - He notes persistent vomiting and decreased appetite, with decreased success in oral intake without emesis. - Accompanied by secondary symptoms of joint aches, blurry vision, and headaches. - Chronic history of COPD, reporting a slight increase in wheezing since illness onset, increased inhaler usage noted. - Experienced environmental exposure to unpleasant odors and stagnant water.Denies fever, chills, hemoptysis, abd pain. He was prescribed a zpak which helped resolve symptoms He continues to have some pain in the right hamstring and calf, no swelling. He does have a history of DDD lumbar spine. Urticaria vasculitis-IgA, C1q antibody, allergies. Follows with allergy and immunology, Dr Kan, and rheumatology at [facility]. He has intermittent joint pain, rash. CV: s/p ablation 2014. Prior to that on flecainide and eliquis. Denies chest pain, dizziness, vision changes Pulmonary: Allergies, COPD on PFT, DEYSI on cpap. Seeing pulmonary. On trelegy MSK: Polyarthralgia. Left neck, shoulder and elbow pain. Diffuse aches pain Anxiety: On sertraline 25mg daily. Takes lorazepam at night BPH On tamsulosin. Follows with urology. Seen 04/2021. Preventive: Colonoscopy 07/02/2021-recommend repeat in 5 years for sessile polyp ROS see HPI PHYSICAL EXAM: GENERAL: Alert and oriented x 3. NAD EYES: EOMI. Anicteric. HENT: Moist mucous membranes. No scleral icterus. No cervical lymphadenopathy. LUNGS: Clear to auscultation bilaterally. CARDIOVASCULAR: Regular rate and rhythm. No murmur. No JVD. ABDOMEN: Soft, non-tender +bs EXTREMITIES: No edema. Non-tender. SKIN: No rashes or lesions. Warm. NEUROLOGIC: No focal neurological deficits. CN II-XII grossly intact PSYCHIATRIC: Cooperative. Appropriate mood and affect [facility] Medical History IgA deficiency Anxiety Arthritis Dyslipidemia Psoriasis Restless leg Granuloma annulare Afib GERD (gastroesophageal reflux disease) DEYSI (obstructive sleep apnea) BPH (benign prostatic hyperplasia) Surgical History History of tonsillectomy Hx of inguinal hernia repair History of radiofrequency ablation (RFA) procedure for cardiac arrhythmia Family History Father Dementia Alzheimer disease Maternal Grandfather Colon cancer Social History Household Members: Family and Children Household Members Other:: Grandchildren Both parents involved: No Caregiver staying overnight: No Housing: House Are you a primary healthcare economics consultant to a significant other at home: No Do you presently have visiting nurse or other home services: No 75 years or older and lives alone: No Alcohol intake: current Alcohol intake frequency: 0-2 drinks per day Alcohol type: beer Patient Tobacco Use Status: Former Tobacco user Years Smoked: Quit 7 years ago e-Cigarette/Vaping Use: Never Used service: No Current occupational status: employed 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 Current occupational exposures/hazards: No Cognitive needs: No Hearing needs: No Vision needs: Yes (experiencing changes, needs referral to ophthalmology) Questionnaire Thrive Questionnaire Date Thrive assessed: 10/23/24 I am a: Patient What is your living situation today?: I have a steady place to live Within the past 12 months, did the food you bought not last and you didn't have the money to get more?: Never true Within the past 12 months, did you worry whether your food would run out before you got money to buy more?: Never true Do you have trouble paying for medicines?: No Do you have trouble getting transportation to medical appointments?: No Do you have trouble paying your heating and electricity bill?: No Do you have trouble taking care of your child, family member or friend?: No Do you have trouble with day-to-day activities such as bathing, preparing meals, shopping, managing finances, etc.?: No Are you currently unemployed and looking for a job?: No Are you interested in more education?: No Please select the resources that you would like help with: None Currently or been in a relationship where the following occur: No concerns reported THRIVE Score: 0 RINA-7 AMB Questionnaire RINA-7 Date RINA - 7 assessed: 10/23/24 Source: Developed by Drs. Bill Howe, Nallely Hercules, Noman Calles and colleagues, with an educational kelly from [employer]. Physical exam (Primary Care) Vital Signs: Last Vital Signs Pulse 88 12/25/24 15:35 Resp 14 12/25/24 15:35 BP 136/82 12/25/24 15:35 Pulse Ox 98 12/25/24 15:35 Oxygen Delivery Method Room Air 12/25/24 15:35 BMI result Body Mass Index 20.5 Tobacco/Smoking Status: Tobacco use Status Tobacco use date assessed 12/25/24 12/25/24 15:37 Patient Tobacco Use Status Former Tobacco user 12/25/24 15:37 e-Cigarette/Vaping Use Never Used 12/25/24 15:37 Thrive Assessment: Date of Thrive Assessment Date Thrive assessed 10/23/24 12/25/24 15:37 Currently or been in a relationship where the following occur: No concerns reported Coding Level of Care Code Est Pt Level 4 (83080) Diagnoses Right leg pain M79.604 Lumbar radiculopathy, right M54.16 Nausea and vomiting, unspecified vomiting type R11.2 Vomiting type: unspecified Simple chronic bronchitis J41.0 COPD type: chronic bronchitis Chronic bronchitis type: simple Assessment & Plan Assessment & Plan (1) Right leg pain: Code(s): M79.604 - Pain in right leg Category: Medical (2) Lumbar radiculopathy, right: Code(s): M54.16 - Radiculopathy, lumbar region Category: Medical (3) Nausea and vomiting: Code(s): R11.2 - Nausea with vomiting, unspecified Category: Medical Qualifiers: Vomiting type: unspecified Qualified Code(s): R11.2 - Nausea with vomiting, unspecified (4) COPD (chronic obstructive pulmonary disease): Code(s): J44.9 - Chronic obstructive pulmonary disease, unspecified Category: Medical Qualifiers: COPD type: chronic bronchitis Chronic bronchitis type: simple Qualified Code(s): J41.0 - Simple chronic bronchitis Plan Right lumbar radiculopathy-predisone ordered COPD is now stable following ztxk Chronic medical conditions stable Medications: New prednisone 40 mg (2 x 20 mg) PO DAILY 10 tabs 0RF
[2024-12-25 15:35] VITALS: BP 136/82; PULSE 88; RESP 14; O2SAT 98; BMI 20.5
== END 2024-12-25 15:55 | disposition home or self-care (01) ==
LOC: HO.HMCFM 15:17
PROVIDERS: PCP Internal Medicine; Visit Provider Internal Medicine
DX: M79.604 Pain in right leg (principal); M54.16 Radiculopathy, lumbar region; R11.2 Nausea with vomiting, unspecified; J41.0 Simple chronic bronchitis

== ENCOUNTER → 2024-12-25 15:16 | Outpatient (BNVA) | payer OTHER, SELFPAY | PROVIDERS: PCP Internal Medicine; Visit Provider Internal Medicine ==

== ENCOUNTER 2025-02-14 13:46 | Outpatient (AMB) | payer OTHER, SELFPAY ==
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
[2025-02-14 14:01] VITALS: BP 126/68; PULSE 51; RESP 14; TEMP 36.8; O2SAT 96; BMI 19.9
[2025-02-14 14:24] VITALS: PULSE 66
--- OUTSIDE RECORDS SUMMARY | 2025-02-14 14:59 | XMS_ITS | Clinical Summary ---
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 Name Role Phone Unavailable Primary Care Provider Unavailabl e Surgical History Surgery Date Site/Laterality Comments TONSILLECTOMY ADENOIDECTOMY, BILATERAL MYRINGOTOMY AND TUBES PROCEDURE: [place] TONSILLECTOMY & ADENOIDECTOMY <AGE 11 HERNIA REPAIR [...] e hypercholesterolemia; COMMENT: cholesterol 228 IgA deficiency (CMS/HCC V24, CMS/HCC V28) DX:IgA deficiency (HCC) Family History Medical History Relation Name Comments Heart attack Father mid-50's Other: gastric ulcer Father Alcohol/Drug Maternal Grandfather Colon cancer Maternal Grandfather Stroke Maternal Grandmother Other: afib Sister 1 Diabetes Neg Hx Hypertension Neg Hx Relation Name Status Comments Brother Alive healthy Daughter Alive healthy Father (Age 85) PA in 60s, gastritis - HTN; dementia Maternal [...] Health Maintenance Due Date Last Done Comments Zoster Vaccines (1 of 2) 1983 DTaP,Tdap,and Td Vaccines (4 - Td or Tdap) 03/04/2021 03/04/2011, 06/02/2006, 01/27/1971 Cholesterol Screening (Lipid Panel) 08/07/2022 Depression Screening 08/07/2022 HIV Screening 08/07/2022 Hepatitis C Screening 08/07/2022 Social Influencers of Health Screening 08/07/2022 Lung Cancer Screening (Low Dose CT) 09/21/2023 09/21/2022, 09/14/2021 RSV Immunization Adult Patients (1 - Risk 60-74 years 1-dose series) 2024 COVID-19 Vaccine (4 - 2023-2 5 season) 2024 05/25/2022, 12/02/2020, 11/10/2020 Influenza Vaccine (Season Ended) 2025 Colorectal Cancer Screening: Colonoscopy 07/05/2026 Pneumococcal Vaccine: 50+ Years Completed 09/01/2022 Pneumococcal Vaccine: Pediatrics (0 to 5 Years) and At-Risk Patients (6 to 64 Years) Completed 09/01/2022 HIB Vaccines Aged Out No longer eligi [...] PM EST Narrative 09/21/2022 10:43 AM EST [facility] Diagnostic Imaging Department [address] [place] [id number] Patient: YINKA MERINO./Age/Sex: 1965 - 57 - M Unit#: [id number] Location/Status: SPDICATLS/REG CLI Mnemonic/Ordering Site[facility] Ordering Physician: HERLINDA MACDONALD MD CT Lung Screening Low Dose - 09/20/22 - 1649 History: 57 year-old 33 pack-year former smoker, asymptomatic, for lung cancer screening. Quit smoking 7 years ago. Comparison: 09/14/21 Technique: Helical volumetric imaging of the thorax was performed, using low- dose technique, without IV contrast. DLP: 126.07 mGy/cm CTDIvol: 3.22 mGy [employer] VCT Iterative reconstruction technique Findings: Lungs and [...] annual screening with LDCT in 12 months. 17651 G9637 G9557 G9551 Dictating Physician: BEBA [place]STON MD Electronically Signed by: BEBA [place]STON MD Dic Date/Time: 09/21/22 1033 Sign date/Time: 09/21/22 1043 Procedure Note Beba [place] MD - 09/30/2023 [facility] Diagnostic Imaging Department [address] [place] [address] [id number] Patient: YINKA MERINO /Age/Sex: 1965 - 57 - M Unit#: [id number] Location/Status: SPDICATLS/REG CLI Mnemonic/[facility]ing [facility] Order[facility] Physician: HERLINDA MACDONALD MD CT Lung Screening Low Dose - 09/20/22 - 164 History: 57 year-old 33 pack-year former smoker, asymptomatic, for lungcancer screening. Quit smoking 7 years ago. Comparison: 09/14/21 Technique: Helical volumetric imaging of the thorax was performed, usinglow- dose technique, without IV contrast. DLP: 126.07 mGy/cm CTDIvol: 3.22 mGy [employer] VCT Iterative reconstruction technique Findings: Lungs and [...] Continue annual screeningwith LDCT in 12 months. 23383 G9637 G9557 G9551 Dictating Physician: BEBA [place]STON MD Electronically Signed by: BEBA [place]ST[place] MD Dic Date/Time: 09/21/22 1033 Sign date/Time: 09/21/22 1043 Herlinda Macdonald MD IMG CT PROCEDURES Final Result from Last 3 Months or Most Recently Relevant to Health Maintenance
== END 2025-02-14 14:54 | disposition home or self-care (01) ==
LOC: HO.HMCFM 13:47
PROVIDERS: PCP Internal Medicine; Visit Provider Physician Assistant Medical
DX: M79.632 Pain in left forearm (principal); M25.532 Pain in left wrist; F07.81 Postconcussional syndrome; Z04.3 Encounter for examination and observation following other accident; V89.2XXA Person injured in unspecified motor-vehicle accident, traffic, initial encounter; I49.9 Cardiac arrhythmia, unspecified

== ENCOUNTER → 2025-02-14 13:46 | Outpatient (BNVA) | payer OTHER, SELFPAY | PROVIDERS: PCP Internal Medicine; Visit Provider Physician Assistant Medical | DX: I49.9 Cardiac arrhythmia, unspecified (principal); F07.81 Postconcussional syndrome | CPT/HCPCS: 93005 ==

== ENCOUNTER 2025-03-12 09:26 | Outpatient (AMB) | payer OTHER, SELFPAY ==
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
--- OUTSIDE RECORDS SUMMARY | 2025-03-12 09:57 | XMS_ITS | Clinical Summary ---
Author Organization [facility] it Address [address] [place] [address] Care Team Providers Care Apartment Community Assistant Manager Name Role Phone Unavailable Primary Care Provider Unavailabl e Surgical History Surgery Date Site/Laterality Comments TONSILLECTOMY ADENOIDECTOMY, BILATERAL MYRINGOTOMY AND TUBES PROCEDURE: [place] TONSILLECTOMY & ADENOIDECTOMY <AGE 11 HERNIA REPAIR [...] healthy Daughter Alive healthy Father (Age 85) [place] in 60s, gastritis - HTN; dementia Maternal [...] season) 2024 05/25/2022, 12/02/2020, 11/10/2020 Influenza Vaccine (#1) 2025 Colorectal Cancer Screening: Colonoscopy 07/05/2026 Pneumococcal Vaccine: 50+ Years Completed 09/01/2022 HIB Vaccines Aged Out No [...] PM EST Narrative 09/21/2022 10:43 AM EST [facility] Diagnostic Imaging Department [address] [place], [place] [id number] Patient: RICKYYINKA D.O.B./Age/Sex: 1965 - 57 - M Unit#: [id number] Location/Status: SPDICATLS/REG CLI Mnemonic/Ordering Site: CTLUNGLD/SPCT Ordering Physician: HERLINDA MACDONALD MD CT Lung Screening Low Dose - 09/20/22 - 1649 History: 57 year-old 33 pack-year former smoker, asymptomatic, for lung cancer screening. Quit smoking 7 years ago. Comparison: 09/14/21 Technique: Helical volumetric imaging of the thorax was performed, using low- dose technique, without IV contrast. DLP: 126.07 mGy/cm CTDIvol: 3.22 mGy [employer] VCT Iterative reconstruction technique Findings: Lungs and [...] annual screening with LDCT in 12 months. [id number] [id number] G9557 G9551 Dictating Physician: BEBA HOUSTON MD Electronically Signed by: BEBA HOUSTON MD Dic Date/Time: 09/21/22 1033 Sign date/Time: 09/21/22 1043 Procedure Note Beba Houston MD - 09/30/2023 [facility] Diagnostic Imaging Department [address] [place] [address] Patient: RICKYYINKA /Age/Sex: 1965 - 57 - M Unit#: [id number] Location/Status: SPDICATLS/REG CLI Mnemonic/Ordering Site: [facility] Ordering Physician: HERLINDA MACDONALD MD CT Lung Screening Low Dose - 09/20/22 - 1649 History: 57 year-old 33 pack-year former smoker, asymptomatic, for lungcancer screening. Quit smoking 7 years ago. Comparison: 09/14/21 Technique: Helical volumetric imaging of the thorax was performed, usinglow- dose technique, without IV contrast. DLP: 126.07 mGy/cm CTDIvol: 3.22 mGy [employer] VCT Iterative reconstruction technique Findings: Lungs and [...] Continue annual screeningwith LDCT in 12 months. [id number] G9637 G9557 G9551 Dictating Physician: BEBA HOUSTON MD Electronically Signed by: BEBA HOUSTON MD Dic Date/Time: 09/21/22 1033 Sign date/Time: 09/21/22 1043 us Herlinda Macdonald MD IM CT PROCEDURES Final Result from Last 3 Months or Most Recently Relevant to Health Maintenance
[2025-03-12 09:58] VITALS: BP 130/90; PULSE 95; O2SAT 98; BMI 20.1
== END 2025-03-12 10:24 | disposition home or self-care (01) ==
LOC: HO.RHE 09:27
PROVIDERS: PCP Internal Medicine; Visit Provider Student in an Organized Health Care Education/Training Program
DX: L95.8 Other vasculitis limited to the skin (principal)
CPT/HCPCS: 99213

== ENCOUNTER 2025-04-18 06:36 | Outpatient (REF) | payer OTHER, SELFPAY ==
--- NOTE | ~2025-04-18 | CT_ITS ---
CLINICAL HISTORY: R91.8 - Other nonspecific abnormal finding of lung field CT chest without contrast Comparison: CT/[place]/SR - CT CHEST WITHOUT IV CONTRAST - 04/23/24 07:16 EDT Findings: The heart is normal size. The visualized thyroid and mediastinum are unremarkable. No consolidation or effusion. Multiple less than 5 mm calcified and noncalcified nodules bilaterally, grossly unchanged in the interval. The visualized upper abdomen is unremarkable. No acute fractures. IMPRESSION: 1. No acute disease within the chest. 2. Multiple less than 5 mm calcified and noncalcified lung nodules bilaterally, unchanged in the interval. This document has been electronically signed by: Evangelina Richmond MD on 04/18/2025 22:40:13
--- OUTSIDE RECORDS SUMMARY | 2025-04-18 06:38 | XMS_ITS ---
Author Name [facility] Organization Unknown Care Team Organization Name Specialty Phone Email Start Date End Da te [facility] Yuly Osorio Primary Care 11/03/2022 024 [facility] Mikaela, PROVIDER Primary Care 07/06/202203/29
--- OUTSIDE RECORDS SUMMARY | 2025-04-18 06:38 | XMS_ITS | Clinical Summary ---
Author Organization [facility] Address [address] [place], [place] [id number] Phone Care Team Providers Care Forester Silviculture Name Role Phone Adali Contreras MD Primary Care Provider [phone] Allergies Active Allergy Reactions Criticality Noted Date Comments Penicillins Hives 04/12/2023 Medications albuterol 90 mcg/actuation inhaler INHALE 2 PUFFS EVERY 4 HOURS NEEDED FOR COUGH, WHEEZE OR SHORTNESS OF BREATH 3 Active azelastine (ASTELIN) 137 mcg (0.1 %) nasal spray 3 Active LORazepam (ATIVAN) 1 MG tablet take 1 tablet by mouth everyday at bedtime 3 Active sertraline (ZOLOFT) 25 MG tablet Take 1 tablet by mouth every morning. 3 Active azithromycin (ZITHROMAX) 250 MG tablet 2 tablets on day 1, one tablet day 2 through 5 6 tablet 3 Active benzonatate (TESSALON) 100 MG capsule Take 1 capsule (100 mg total) by mouth 3 (three) times a day as needed for cough. 20 capsule 3 Active Active Problems No known active problems Immunizations Immunization Administration Dates Next Due DTP 01/27/1971 Measles 08/29/1968 Mumps 11/27/1969 Pneumococcal conjugate PCV20 09/01/2022 Rubella 08/29/1968 Td (adult),2 Lf Tetanus Toxoid, PF, Adsorbed 12/2005 Tdap 03/04/2011 Social History Tobacco Use Types Packs/Day Years Used Date Smoking Tobacco: Former Cigarettes Smokeless Tobacco: Never Tobacco Cessation:Counseling Given: Not Answered Education Answer Date Recorded Are you interested in more education? Not on david e 04/12/2023 Are you concerned about learning? Not on file 04/12/2023 No 04/12/2023 No 04/12/2023 Digital Access Answer Date Recorded No 04/12/2023 No 04/12/2023 Reliable internet access at home? Not on file 04/12/2023 Device with a working camera? Not on file Intimate Partner Violence Answer Date R ecorded Are you denied basic needs s uch as food, clothing, or medical care? No 04/12/2023 In the past 12 months have y ou been in a relationship with a person who hurts, threatens, or tries to control you? No 04/12/2023 Are you denied basic needs s uch as food, clothing, or medical care? No 04/12/2023 In the past 12 months have y ou been in a relationship with a person who hurts, threatens, or tries to control you? No 04/12/2023 Sex and Gender Information Value Date Recorded Sex Assigned at Not on file Legal Sex Male 7:58 AM EDT Gender Identity Not on file Sexual Orientation Not on file Last Filed Vital Signs Vital Sign Reading Time Taken Comments Blood Pressure 167/110 04/12/2023 2:06 PM EDT Pulse 67 04/12/2023 2:06 PM EDT Temperature 36.6 C (97.9 F) 04/12/2023 9:29 AM EDT Respiratory Rate 18 04/12/2023 2:06 PM EDT Oxygen Saturation 98% 04/12/2023 2:06 PM EDT Inhaled Oxygen Concentration - - Weight 74.8 kg (165 lb) 04/12/2023 11:27 AM EDT Height 182.9 cm (6') 04/12/2023 11:27 AM EDT Body Mass Index 22.38 04/12/2023 11:27 AM EDT Plan of Treatment Health Maintenance Due Date Last Done Comments LIPID PANEL 1964 DEPRESSION SCREENING 1976 SMOKING Hx and SMOKELESS TOBACCO SCREENING 1977 HEPATITIS C SCREENING 1982 HIV ONE-TIME SCREENING (18-6 5 YEARS) 1982 COLOGUARD 2009 COLONOSCOPY 2009 COLORECTAL CANCER SCREENING 2009 FIT TEST 2009 FOBT 2009 SIGMOIDOSCOPY 2009 VIRTUAL COLONOSCOPY 2009 ZOSTER VACCINES (1 of 2) 2014 Adult Td,Tdap Booster 03/04/2021 03/04/2011 , 06/02/2006 COVID-19 VACCINE (4 - 2023-2 5 season) 2024 05/25/2022, 12/02/2020, 11/10/2020 RSV VACCINE (1 - 1-dose 75+ series) 2039 PNEUMOCOCCAL VACCINES (50+ years) Completed 09/01/2022 HEPATITIS A VACCINES Aged Out No long er eligible based on patient's age to complete this topic HIB VACCINES Aged Out No longer eligi ble based on patient's age to complete this topic MENINGOCOCCAL VACCINES (ACWY) Aged Out No longer eligible based on patient's age to complete this topic MENINGOCOCCAL VACCINES (B) Aged Out N o longer eligible based on patient's age to complete this topic Medical Devices Not on file Insurance CIGNA PPO CIGNA PPO CIGNA PPO CIGNA PPO CIGNA PPO CIGNA PPO Care Teams Forester Silviculture Relationship Specialty Start Date End Date Adali Contreras MD PCP - General Internal Medicine 04/12/23 Additional Source Comments The information contained in this document represents components of the legal health record. It is not the complete legal health record.[facility]
== END 2025-04-18 06:37 | disposition home or self-care (01) ==
LOC: HO.CT 06:36
PROVIDERS: PCP Internal Medicine; Visit Provider Nurse Practitioner Family
DX: R91.8 Other nonspecific abnormal finding of lung field (principal)
CPT/HCPCS: 71250

== ENCOUNTER → 2025-04-18 06:38 | Outpatient (BNV) | payer OTHER, SELFPAY | PROVIDERS: PCP Internal Medicine; Visit Provider Student in an Organized Health Care Education/Training Program | DX: R91.8 Other nonspecific abnormal finding of lung field (principal) | CPT/HCPCS: 71250 ==

== ENCOUNTER 2025-04-22 11:11 | Outpatient (AMB) | payer OTHER, SELFPAY ==
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
[2025-04-22 11:23] VITALS: BP 132/82; PULSE 87; RESP 14; TEMP 36.9; O2SAT 96; BMI 20.5
--- OUTSIDE RECORDS SUMMARY | 2025-04-22 12:34 | XMS_ITS | Clinical Summary ---
Author Organization [facility] it Address [address] [place] [address] Care Team Providers Care Practice Nurse Name Role Phone Unavailable Primary Care Provider Unavailabl e Surgical History Surgery Date Site/Laterality Comments TONSILLECTOMY ADENOIDECTOMY, BILATERAL MYRINGOTOMY AND TUBES PROCEDURE: [place] TONSILLECTOMY & ADENOIDECTOMY <AGE 11 HERNIA REPAIR [...] healthy Daughter Alive healthy Father (Age 85) [place] in 60s, gastritis - HTN; dementia Maternal [...] 06/02/2006, 01/27/1971 Cholesterol Screening (Lipid Panel) 08/07/2022 HIV Screening 08/07/2022 Hepatitis C Screening 08/07/2022 Social Influencers of Health Screening 08/07/2022 Lung Cancer Screening (Low Dose CT) 09/21/2023 09/21/2022, 09/14/2021 RSV Immunization Adult Patients (1 - Risk 60-74 years 1-dose series) 2024 COVID-19 Vaccine (4 - 2023-2 5 season) 2024 05/25/2022, 12/02/2020, 11/10/2020 Depression Screening 08/29/2024 Influenza Vaccine (#1) 2025 Colorectal Cancer Screening: [...] PM EST Narrative 09/21/2022 10:43 AM EST [facility] Diagnostic Imaging Department [address] [place], [place] [id number] Patient: RICKYYINKA D.O.B./Age/Sex: 1965 - 57 - M Unit#: [id number] Location/Status: SPDICATLS/REG CLI Mnemonic/Ordering Site: CTLUNGLD/SPCT Ordering Physician: HERLINDA MACDONALD MD CT Lung Screening Low Dose - 09/20/22 - 1649 History: 57 year-old 33 pack-year former smoker, asymptomatic, for lung cancer screening. Quit smoking 7 years ago. Comparison: 09/14/21 Technique: Helical volumetric imaging of the thorax was performed, using low- dose technique, without IV contrast. DLP: 126.07 mGy/cm CTDIvol: 3.22 mGy [employer] VCT Iterative reconstruction technique Findings: Lungs and [...] annual screening with LDCT in 12 months. 06371 G9637 G9557 G9551 Dictating Physician: BEBA HOUSTON MD Electronically Signed by: BEBA HOUSTON MD Dic Date/Time: 09/21/22 1033 Sign date/Time: 09/21/22 1043 Procedure Note Beba Houston MD - 09/30/2023 [facility] Diagnostic Imaging Department [address] [place] [address] Patient: RICKYYINKA /Age/Sex: 1965 - 57 - M Unit#: [id number] Location/Status: SPDICATLS/REG CLI Mnemonic/Ordering Site: [facility] Order[place] Physician: HERLINDA MACDONALD MD CT Lung Screening Low Dose - 09/20/22 - 1649 History: 57 year-old 33 pack-year former smoker, asymptomatic, for lungcancer screening. Quit smoking 7 years ago. Comparison: 09/14/21 Technique: Helical volumetric imaging of the thorax was performed, usinglow- dose technique, without IV contrast. DLP: 126.07 mGy/cm CTDIvol: 3.22 mGy [employer] VCT Iterative reconstruction technique Findings: Lungs and [...] Continue annual screeningwith LDCT in 12 months. [id number] G9637 G9557 G9551 Dictating Physician: BEBA HOUSTON MD Electronically Signed by: BEBA HOUSTON MD Dic Date/Time: 09/21/22 1033 Sign date/Time: 09/21/22 1043 us Herlinda Macdonald MD IM CT PROCEDURES Final Result from Last 3 Months or Most Recently Relevant to Health Maintenance
== END 2025-04-22 11:54 | disposition home or self-care (01) ==
LOC: HO.HMCFM 11:12
PROVIDERS: PCP Internal Medicine; Visit Provider Internal Medicine
DX: S06.0XAS Concussion with loss of consciousness status unknown, sequela (principal); V89.2XXD Person injured in unspecified motor-vehicle accident, traffic, subsequent encounter; M62.838 Other muscle spasm

== ENCOUNTER 2025-06-11 11:39 | Outpatient (AMB) | payer OTHER, SELFPAY ==
[2025-06-11 11:42] VITALS: BP 114/84; PULSE 97; RESP 12; TEMP 36.9; O2SAT 97; BMI 20.1
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
--- OUTSIDE RECORDS SUMMARY | 2025-06-11 14:13 | XMS_ITS | Clinical Summary ---
Author Organization [facility] it Address [address] [place] [address] Care Team Providers Care Assembly Riveter Name Role Phone Unavailable Primary Care Provider Unavailabl e Surgical History Surgery Date Site/Laterality Comments TONSILLECTOMY ADENOIDECTOMY, BILATERAL MYRINGOTOMY AND TUBES PROCEDURE: AR TONSILLECTOMY & ADENOIDECTOMY <AGE 11 HERNIA REPAIR [...] healthy Daughter Alive healthy Father (Age 85) [place] in 60s, gastritis - HTN; dementia Maternal [...] - Risk 60-74 years 1-dose series) 2024 Depression Screening 08/29/2024 COVID-19 Vaccine (4 - 2024-2 6 season) 2025 05/25/2022, 12/02/2020, 11/10/2020 Influenza Vaccine (#1) 2025 [...] PM EST Narrative 09/21/2022 10:43 AM EST [facility] Diagnostic Imaging Department [address] [place], [place] [id number] Patient: RICKYYINKA D.O.B./Age/Sex: 1965 - 57 - M Unit#: [id number] Location/Status: SPDICATLS/REG CLI Mnemonic/Ordering Site: CTLUNGLD/SPCT Ordering Physician: HERLINDA MACDONALD MD CT Lung Screening Low Dose - 09/20/22 - 1649 History: 57 year-old 33 pack-year former smoker, asymptomatic, for lung cancer screening. Quit smoking 7 years ago. Comparison: 09/14/21 Technique: Helical volumetric imaging of the thorax was performed, using low- dose technique, without IV contrast. DLP: 126.07 mGy/cm CTDIvol: 3.22 mGy Wirescan VCT Iterative reconstruction technique Findings: Lungs and [...] annual screening with LDCT in 12 months. 81510 G9637 G9557 G9551 Dictating Physician: BEBA HOUSTON MD Electronically Signed by: BEBA HOUSTON MD Dic Date/Time: 09/21/22 1033 Sign date/Time: 09/21/22 1043 Procedure Note Beba Houston MD - 09/30/2023 [facility] Diagnostic Imaging Department [address] [place] [id number] Patient: RICKYYINKA /Age/Sex: 1965 - 57 - M Unit#: [id number] Location/Status: SPDICATLS/REG CLI Mnemonic/Ordering Site: [facility] Ordering Physician: HERLINDA MACDONALD MD CT Lung Screening Low Dose - 09/20/22 - 1649 History: 57 year-old 33 pack-year former smoker, asymptomatic, for lungcancer screening. Quit smoking 7 years ago. Comparison: 09/14/21 Technique: Helical volumetric imaging of the thorax was performed, usinglow- dose technique, without IV contrast. DLP: 126.07 mGy/cm CTDIvol: 3.22 mGy Wirescan VCT Iterative reconstruction technique Findings: Lungs and [...] Continue annual screeningwith LDCT in 12 months. 18241 G9637 G9557 G9551 Dictating Physician: BEBA HOUSTON MD Electronically Signed by: BEBA HOUSTON MD Dic Date/Time: 09/21/22 1033 Sign date/Time: 09/21/22 1043 us Herlinda Macdonald MD IM CT PROCEDURES Final Result from Last 3 Months or Most Recently Relevant to Health Maintenance
--- OUTSIDE RECORDS SUMMARY | 2025-06-11 14:13 | XMS_ITS | Clinical Summary ---
Author Organization [facility] Address [address] [place], [place] [id number] Phone Care Team Providers Care Sales Representative Electric Service Name Role Phone Adali Contreras MD Primary Care Provider [phone] Allergies Active Allergy Reactions Criticality Noted Date [...] Adult Td,Tdap Booster 03/04/2021 03/04/2011 , 06/02/2006 INFLUENZA VACCINE (#1) 2025 COVID-19 VACCINE ( - 2024-2 6 season) 2025 05/25/2022, 12/02/2020, 11/10/2020 RSV VACCINE (1 - [...] topic Medical Devices Not on file [facility] CIGNA PPO CIGNA PPO CIGNA PPO CIGNA PPO [facility] Care Teams Sales Representative Electric Service Relationship Specialty Start Date End Date Adali Contreras MD PCP - General Internal Medicine 04/12/23 Additional Source Comments The information contained in this document represents components of the legal health record. It is not the complete legal health record.[facility]
== END 2025-06-11 12:10 | disposition home or self-care (01) ==
LOC: HO.HMCFM 11:40
PROVIDERS: PCP Internal Medicine; Visit Provider Internal Medicine
DX: Z09 Encounter for follow-up examination after completed treatment for conditions other than malignant neoplasm (principal); R07.9 Chest pain, unspecified

== ENCOUNTER 2025-07-01 08:56 | Outpatient (AMB) | payer OTHER, SELFPAY ==
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
[2025-07-01 08:59] VITALS: BP 126/84; PULSE 84; RESP 14; O2SAT 98; BMI 19.7
--- OUTSIDE RECORDS SUMMARY | 2025-07-01 09:39 | XMS_ITS | Clinical Summary ---
Author Organization [facility] Address [address] [place], [place] [id number] Phone Care Team Providers Care Restaurant Line Cook Name Role Phone Adali Contreras MD Primary Care Provider [phone] Allergies Active Allergy Reactions Criticality Noted Date [...] topic Medical Devices Not on file [facility] P[facility] CIGNA PPO CIGNA PPO CIGNA PPO [facility] Care Teams Restaurant Line Cook Relationship Specialty Start Date End Date Adali Contreras MD PCP - General Internal Medicine 04/12/23 Additional Source Comments The information contained in this document represents components of the legal health record. It is not the complete legal health record.[facility]
--- OUTSIDE RECORDS SUMMARY | 2025-07-01 09:39 | XMS_ITS | Clinical Summary ---
Author Organization [facility] it Address [address] [place] [address] Care Team Providers Care Manager Operations Research Name Role Phone Unavailable Primary Care Provider Unavailabl e Surgical History Surgery Date Site/Laterality Comments TONSILLECTOMY ADENOIDECTOMY, BILATERAL MYRINGOTOMY AND TUBES PROCEDURE: [place] TONSILLECTOMY & ADENOIDECTOMY <AGE 11 HERNIA REPAIR [...] healthy Daughter Alive healthy Father (Age 85) [place] in 60s, gastritis - HTN; dementia Maternal [...] Comments Zoster Vaccines (1 of 2) 1983 RSV Immunization Adult Patients (1 - Risk 50-74 years 1-dose series) 2014 DTaP,Tdap,and Td Vaccines (4 - Td or Tdap) 03/04/2021 03/04/2011, 06/02/2006, 01/27/1971 Cholesterol Screening (Lipid Panel) 08/07/2022 HIV Screening 08/07/2022 Hepatitis C Screening 08/07/2022 Social Influencers of Health Screening 08/07/2022 Lung Cancer Screening (Low Dose CT) 09/21/2023 09/21/2022, 09/14/2021 Depression Screening 08/29/2024 COVID-19 Vaccine (4 - [...] PM EST Narrative 09/21/2022 10:43 AM EST [facility] Diagnostic Imaging Department [address] [place] [address] Patient: RICKYYINKA D.O.B./Age/Sex: 1965 - 57 - M Unit#: [id number] [facility]Ordering Site: [facility]/SPCT Ordering Physician: HERLINDA MACDONALD MD CT Lung Screening Low Dose - 09/20/22 - 1649 History: 57 year-old 33 pack-year former smoker, asymptomatic, for lung cancer screening. Quit smoking 7 years ago. Comparison: 09/14/21 Technique: Helical volumetric imaging of the thorax was performed, using low- dose technique, without IV contrast. DLP: 126.07 mGy/cm CTDIvol: 3.22 mGy Sh[employer] TechnologyT Iterative reconstruction technique Findings: Lungs and Airways: [...] annual screening with LDCT in 12 months. [id number] [id number] G9557 G9551 Dictating Physician: BEBA HOUSTON MD Electronically Signed by: BEBA HOUSTON MD Dic Date/Time: 09/21/22 1033 Sign date/Time: 09/21/22 1043 Procedure Note Beba Houston MD - 09/30/2023 [facility] Diagnostic Imaging Department [address] [place] [id number] Patient: RICKYYINKA /Age/Sex: 1965 - 57 - M Unit#: [id number] Location/Status: SPDICATLS/REG CLI Mnemonic/[facility]ing [facility] Ordering Physician: HERLINDA MACDONALD MD CT Lung Screening Low Dose - 09/20/22 - 1649 History: 57 year-old 33 pack-year former smoker, asymptomatic, for lungcancer screening. Quit smoking 7 years ago. Comparison: 09/14/21 Technique: Helical volumetric imaging of the thorax was performed, usinglow- dose technique, without IV contrast. DLP: 126.07 mGy/cm CTDIvol: 3.22 mGy DotGTpeed VCT Iterative reconstruction technique Findings: Lungs and [...] Continue annual screeningwith LDCT in 12 months. [id number] G9637 G9557 G9551 Dictating Physician: BEBA HOUSTON MD Electronically Signed by: BEBA HOUSTON MD Dic Date/Time: 09/21/22 1033 Sign date/Time: 09/21/22 1043 us Herlinda Macdonald MD IM CT PROCEDURES Final Result from Last 3 Months or Most Recently Relevant to Health Maintenance
== END 2025-07-01 09:25 | disposition home or self-care (01) ==
LOC: HO.HMCFM 08:57
PROVIDERS: PCP Internal Medicine; Visit Provider Internal Medicine
DX: R51.9 Headache, unspecified (principal); F07.81 Postconcussional syndrome; V89.2XXS Person injured in unspecified motor-vehicle accident, traffic, sequela; Z04.3 Encounter for examination and observation following other accident

== ENCOUNTER → 2025-07-21 08:59 | Outpatient (BNV) | payer OTHER, SELFPAY | PROVIDERS: PCP Internal Medicine; Visit Provider Radiology Diagnostic Radiology | DX: R42 Dizziness and giddiness (principal) | CPT/HCPCS: 70551 ==

== ENCOUNTER 2025-07-21 09:08 | Outpatient (REF) | payer OTHER, SELFPAY ==
--- NOTE | ~2025-07-21 | MR_ITS ---
EXAMINATION: MR BRAIN WITHOUT IV CONTRAST HISTORY: R42 - Dizziness and giddiness TECHNIQUE: Sagittal T1 and FLAIR, and axial T1, FLAIR, T2, gradient echo, and diffusion weighted MR images of the brain were obtained. COMPARISON: There are no prior studies available for comparison. FINDINGS: The pituitary is normal in size. The cerebellar tonsils are normally located. There are scattered periventricular and subcortical white matter hyperintensities on the FLAIR and T2-weighted images. These are nonspecific, but often seen in the setting of small vessel ischemic disease. Montero/white differentiation is otherwise normal. There is no mass effect or midline shift. The ventricular system is normal in size and configuration. No intra or extra-axial fluid collections are identified. There are no foci of restricted diffusion. Normal vascular flow voids are noted in the basilar and carotid arteries. The visualized paranasal sinuses are clear. MR/MR head/brain wo con IMPRESSION: Nonspecific white matter hyperintensities, likely representing small vessel ischemic disease. Otherwise unremarkable MRI of the brain without contrast. Electronically signed by: Bill Florez MD 07/22/2025 07:21 AM [facility]
--- OUTSIDE RECORDS SUMMARY | 2025-07-21 09:11 | XMS_ITS | Clinical Summary ---
Author Organization [facility] Address [address] [place], [place] [id number] Phone Care Team Providers Care Financial Sales Advisor Name Role Phone Adali Contreras MD Primary Care Provider [phone] Allergies Active Allergy Reactions Criticality Noted Date [...] topic Medical Devices Not on file [facility] [employer] P[employer] P[employer] PPO [employer] PPO [facility] Care Teams Financial Sales Advisor Relationship Specialty Start Date End Date Adali Contreras MD PCP - General Internal Medicine 04/12/23 Additional Source Comments The information contained in this document represents components of the legal health record. It is not the complete legal health record.[facility]
--- OUTSIDE RECORDS SUMMARY | 2025-07-21 09:11 | XMS_ITS | Clinical Summary ---
Author Organization [facility] it Address [address] [place] [address] Care Team Providers Care House Manager Name Role Phone Unavailable Primary Care Provider Unavailabl e Surgical History Surgery Date Site/Laterality Comments TONSILLECTOMY ADENOIDECTOMY, BILATERAL MYRINGOTOMY AND TUBES PROCEDURE: [place] TONSILLECTOMY & ADENOIDECTOMY <AGE 11 HERNIA REPAIR [...] Years Used Date Smoking Tobacco: Former Cigarettes 1 Q uit: 07/18/2015 Smokeless Tobacco: Never Quit: [...] 08/07/2022 Social Influencers of Health Screening 08/07/2022 Depression Screening 08/29/2024 COVID-19 Vaccine (4 - 2024-2 6 season) 2025 05/25/2022, 12/02/2020, 11/10/2020 Influenza Vaccine (#1) 2025 Colorectal Cancer Screening: Colonoscopy 07/05/2026 Pneumococcal Vaccine: 50+ Years Completed 09/01/2022 Lung Cancer Screening (Low Dose CT) Discontinued 09/21/2022, 09/14/2021 HIB Vaccines Aged Out No longer eligi [...] 20 months Aged Out No longer eligible based on [...] PM EST Narrative 09/21/2022 10:43 AM EST [facility] Diagnostic Imaging Department [address] [place], [place] [id number] Patient: YINKA MERINO /Age/Sex: 1965 - 57 - M Unit#: [id number] Location/Status: SPDICATLS/REG CLI Mnemonic/Ordering Site: [facility] Ordering Physician: HERLINDA MACDONALD MD CT Lung Screening Low Dose - 09/20/22 - 1649 History: 57 year-old 33 pack-year former smoker, asymptomatic, for lung cancer screening. Quit smoking 7 years ago. Comparison: 09/14/21 Technique: Helical volumetric imaging of the thorax was performed, using low- dose technique, without IV contrast. DLP: 126.07 mGy/cm CTDIvol: 3.22 mGy Insight PlusT Iterative reconstruction technique Findings: Lungs and Airways: [...] annual screening with LDCT in 12 months. [id number] [id number] G9557 G9551 Dictating Physician: BEBA HOUSTON MD Electronically Signed by: BEBA HOUSTON MD Dic Date/Time: 09/21/22 1033 Sign date/Time: 09/21/22 1043 Procedure Note Beba Houston MD - 09/30/2023 [facility] Diagnostic Imaging Department [address] [place] [id number] Patient: YINKA MERINO /Age/Sex: 1965 - 57 - M Unit#: [id number] Location/Status: SPDICATLS/REG CLI Mnemonic/Ordering Site: [facility] Ordering Physician: HERLINDA MACDONALD MD CT Lung Screening Low Dose - 09/20/22 - 1649 History: 57 year-old 33 pack-year former smoker, asymptomatic, for lungcancer screening. Quit smoking 7 years ago. Comparison: 09/14/21 Technique: Helical volumetric imaging of the thorax was performed, usinglow- dose technique, without IV contrast. DLP: 126.07 mGy/cm CTDIvol: 3.22 mGy VOSSpeScan VCT Iterative reconstruction technique Findings: Lungs and [...] Continue annual screeningwith LDCT in 12 months. 04115 G9637 G9557 G9551 Dictating Physician: BEBA HOUSTON MD Electronically Signed by: BEBA HOUSTON MD Dic Date/Time: 09/21/22 1033 Sign date/Time: 09/21/22 1043 us Herlinda Macdonald MD IM CT PROCEDURES Final Result from Last 3 Months or Most Recently Relevant to Health Maintenance
== END 2025-07-21 09:09 | disposition home or self-care (01) ==
LOC: HO.MRI 09:08
PROVIDERS: PCP Internal Medicine; Visit Provider Internal Medicine Hypertension Specialist
DX: R42 Dizziness and giddiness (principal); F07.81 Postconcussional syndrome; R51.9 Headache, unspecified
CPT/HCPCS: 70551

== ENCOUNTER 2025-08-26 13:37 | Emergency (ER) | payer OTHER, SELFPAY ==
--- NOTE | ~2025-08-26 | XR_ITS ---
EXAMINATION: XR CHEST CLINICAL INFORMATION: weakness COMPARISON: CT chest 04/18/2025. TECHNIQUE: 2 views of the chest were obtained. FINDINGS: The cardiac, hilar, and mediastinal contours are normal. Lungs are diffusely hyperaerated and hyperlucent consistent with COPD. There is linear patchy opacity in the left lower lung medially, suspicious for inflammatory airways disease and possible bronchopneumonia. There is a subtle opacity in the far medial right lower lung as well. There is no pneumothorax or pleural effusion. There is no focal osseous or soft tissue abnormality. XR/XR chest 2V IMPRESSION: 1. COPD. 2. Linear patchy opacities left lower lobe, suspicious for inflammatory airways disease and possible underlying bronchopneumonia. Electronically signed by: Jono Olmos MD 08/26/2025 03:09 PM [email or web address]
[2025-08-26 14:21] VITALS: BP 152/95; PULSE 83; RESP 18; TEMP 37.9; O2SAT 93; BMI 19.6
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
--- NOTE | 2025-08-26 14:26 | ECG_ITS ---
Test Reason : SOB Blood Pressure : */* mmHG Vent. Rate : 104 BPM Atrial Rate : 104 BPM P-R Int : 118 ms QRS Dur : 90 ms QT Int : 314 ms P-R-T Axes : 74 77 53 degrees QTcB Int : 412 ms Sinus tachycardia with Premature atrial complexes with Aberrant conduction Right atrial enlargement Borderline ECG No previous ECGs available Referred By: Bibiana Lee Electronically Signed By: JASON PADILLA
[2025-08-26 14:55] LABS: MANUAL DIFF FLAG NO
[2025-08-26 14:56] LABS: Hematocrit 51.2 % (42.0-52.0); Hemoglobin 17.9 g/dl (14.0-18.0); Imm Gran Abs Auto 0.07 X10*3/uL (0.00-0.03); Imm Gran Pct Auto 0.6 % (0.0-0.4); Lymphocytes Absolute Auto 0.7 X10*3/uL (1.2-4.9); Mean Corpuscular HGB Conc 35.0 g/dl (31.0-36.0); Mean Corpuscular Hemoglobin 31.9 pg (27.0-33.0); Mean Corpuscular Volume 91.3 fL (80.0-98.0); NRBC Abs Auto 0.000 X10*3/uL (0.0-0.012); NRBC Pct Auto 0.0 /100WBC (0.0-0.2); Platelet Count 198 X10*3/uL (160-400); Red Blood Count 5.61 X10*6/uL (4.60-5.80); White Blood Count 12.1 X10*3/uL (4.8-10.8)
[2025-08-26 15:14] LABS: Alanine Aminotransferase 56 U/L (0-40); Albumin Level 4.7 g/dL (3.5-5.0); Alkaline Phosphatase 65 U/L (39-117); Anion Gap 14 (12-20); Aspartate Amino Transferase 43 U/L (5-37); Blood Urea Nitrogen 29 mg/dL (9-16); Calcium 10.1 mg/dL (8.4-10.2); Carbon Dioxide 27 mmol/L (22-29); Chloride 99 mmol/L (96-108); Creatinine Clr Calc Pharmacy 61.8; Estimated Glomerular Filt Rate > 60; Magnesium 2.3 mg/dL (1.6-2.6); Potassium 4.2 mmol/L (3.3-5.1); Sodium 136 mmol/L (135-145); Total Protein 8.3 g/dL (6.5-8.0)
[2025-08-26 15:21] LABS: Troponin-I High Sensitivity 5.2 ng/L (<3.5-35.0)
[2025-08-26 15:33] LABS: Resp Syncy Virus RNA Qual PCR NEGATIVE (Negative); SARS COV2 PCR INHOUSE NEGATIVE (Negative)
[2025-08-26 15:52] VITALS: BP 152/95; PULSE 83; RESP 18; TEMP 37.9; O2SAT 93
--- OUTSIDE RECORDS SUMMARY | 2025-08-26 17:47 | XMS_ITS | Clinical Summary ---
Author Organization [facility] it Address [address] [place] [address] Care Team Providers Care Transportation Planning Technician Name Role Phone Unavailable Primary Care Provider Unavailabl e Surgical History Surgery Date Site/Laterality Comments TONSILLECTOMY ADENOIDECTOMY, BILATERAL MYRINGOTOMY AND TUBES PROCEDURE: [facility] TONSILLECTOMY & ADENOIDECTOMY <AGE 11 HERNIA REPAIR [...] PM EST Narrative 09/21/2022 10:43 AM EST [facility] Diagnostic Imaging Department [address] [place] [address] Patient: YINKA MERINO /Age/Sex: 1965 - 57 - M Unit#: [id number] Location/Status: SPDICATLS/REG CLI Mnemonic/Ordering Site: [facility]/SP[facility] Ordering Physician: HERLINDA MACDONALD MD CT Lung Screening Low Dose - 09/20/22 - 1649 History: 57 year-old 33 pack-year former smoker, asymptomatic, for lung cancer screening. Quit smoking 7 years ago. Comparison: 09/14/21 Technique: Helical volumetric imaging of the thorax was performed, using low- dose technique, without IV contrast. DLP: 126.07 mGy/cm CTDIvol: 3.22 mGy [employer] Iterative reconstruction technique Findings: Lungs and Airways: [...] annual screening with LDCT in 12 months. [id number] [id number] [id number] [id number] Dictating Physician: BEBA HOUSTON MD Electronically Signed by: BEBA HOUSTON MD Dic Date/Time: 09/21/22 1033 Sign date/Time: 09/21/22 1043 Procedure Note Beba Houston MD - 09/30/2023 [facility] Diagnostic Imaging Department [address] [place] [id number] Patient: YINKA MERINO /Age/Sex: 1965 - 57 - M Unit#: [id number] Location/Status: SPDICATLS/REG CLI Mnemonic/Ordering Site: [facility] Ordering Physician: HERLINDA MACDONALD MD CT Lung Screening Low Dose - 09/20/22 - 1649 History: 57 year-old 33 pack-year former smoker, asymptomatic, for lungcancer screening. Quit smoking 7 years ago. Comparison: 09/14/21 Technique: Helical volumetric imaging of the thorax was performed, usinglow- dose technique, without IV contrast. DLP: 126.07 mGy/cm CTDIvol: 3.22 mGy [employer] VCT Iterative reconstruction technique Findings: Lungs and [...] Continue annual screeningwith LDCT in 12 months. [id number] [id number] [id number] [id number] Dictating Physician: BEBA HOUSTON MD Electronically Signed by: BEBA HOUSTON MD Dic Date/Time: 09/21/22 1033 Sign date/Time: 09/21/22 1043 us Herlinda Macdonald MD IMG CT PROCEDURES Final Result from Last 3 Months or Most Recently Relevant to Health Maintenance
--- OUTSIDE RECORDS SUMMARY | 2025-08-26 17:47 | XMS_ITS | Clinical Summary ---
Author Organization [facility] Address [address] [place], [place] [address] Phone Care Team Providers Care Sterilizer Operator Name Role Phone Adali Contreras MD Primary Care Provider Allergies Active Allergy Reactions Criticality Noted Date [...] topic Medical Devices Not on file [facility] PPO CIGNA PPO CIGNA PPO [employer]IGNA PPO [facility] Care Teams Sterilizer Operator Relationship Specialty Start Date End Date Adali Contreras MD PCP - General Internal Medicine 04/12/23 Additional Source Comments The information contained in this document represents components of the legal health record. It is not the complete legal health record.[facility]
== END 2025-08-26 16:20 | disposition home or self-care (01) ==
LOC: HO.ED 15:59
PROVIDERS: Physician Assistant Medical; Emergency Provider Emergency Medicine; PCP Internal Medicine
DX: R05.9 Cough, unspecified (principal); J10.1 Influenza due to other identified influenza virus with other respiratory manifestations; J18.9 Pneumonia, unspecified organism; R11.2 Nausea with vomiting, unspecified; Z03.818 Encounter for observation for suspected exposure to other biological agents ruled out; Z79.899 Other long term (current) drug therapy
CPT/HCPCS: 71046; 80053; 83735; 84484; 85025; 87637; 93005; 99283

== ENCOUNTER → 2025-08-26 14:26 | Outpatient (BNV) | payer OTHER, SELFPAY | PROVIDERS: Emergency Provider Emergency Medicine; PCP Internal Medicine; Visit Provider Internal Medicine | DX: R00.0 Tachycardia, unspecified (principal); I49.1 Atrial premature depolarization; I51.7 Cardiomegaly | CPT/HCPCS: 93010 ==

== ENCOUNTER → 2025-08-26 14:26 | Outpatient (BNV) | payer OTHER, SELFPAY | PROVIDERS: Emergency Provider Emergency Medicine; PCP Internal Medicine; Visit Provider Radiology Diagnostic Radiology | DX: J44.9 Chronic obstructive pulmonary disease, unspecified (principal); R91.8 Other nonspecific abnormal finding of lung field | CPT/HCPCS: 71046 ==